=== PATIENT | male | born 1940 | race Caucasian/White ===

== ENCOUNTER 2016-10-31 12:47 | Inpatient (IN) | payer MEDICARE, OTHER, MEDICAID ==
[~2016-10-31] VITALS: Ht 172.7 cm; Wt 90.7 kg
[2016-10-31] VITALS (7 sets, daily range): BP systolic 114–137; BP diastolic 46–71
[~2016-10-31 12:47] MED LIST: VITAMIN C500 M1 JT
[2016-10-31] MEDS ORDERED: DIGOXIN0.125 MG/2 JT (13:09)
[2016-10-31] MEDS ORDERED: MULTIVITAMINS1 EAC8 JT (13:11)
[2016-10-31] MEDS ORDERED: NEXIUM20 M1 JT (13:12)
[2016-10-31] MEDS ORDERED: ROBINUL1 MG JT (13:13)
[2016-10-31] MEDS ORDERED: Ipratropium 0.02% Inh Soln 2.5ml UD HHN ONE (13:15)
[2016-10-31] MEDS ORDERED: Solu-MEDROL 125mg Inj IVP ONE (13:15)
[2016-10-31] MEDS ORDERED: Albuterol ud Inhalation HHN ONE (13:15)
[2016-10-31] MEDS ORDERED: METOPROLOL TART25 MG JT (13:17)
[2016-10-31] MEDS ORDERED: PERIDEX15 ML PO (13:19)
[2016-10-31 13:23] LABS: EOSINOPHILS % (AUTO) 6.5 % (0.0-3.0); LYMPHOCYTES % (AUTO) 8.5 % (20.0-45.0); MEAN CORPUSCULAR HGB CONC 30.9 G/DL (32.0-36.0); MEAN CORPUSCULAR VOLUME 91 FL (80-99); MEAN PLATELET VOLUME 7.4 FL (6.5-10.1); PLATELET COUNT 234 K/UL (150-450); RED BLOOD COUNT 4.13 M/UL (4.70-6.10); RED CELL DISTRIBUTION WIDTH 13.7 % (11.6-14.8); WHITE BLOOD COUNT 8.8 K/UL (4.8-10.8)
[2016-10-31] MEDS ORDERED: SORBITOL 70%30 ML JT (13:23)
[2016-10-31] MEDS ORDERED: ALBUTEROL2.5 MG/3 M INH (13:30)
[2016-10-31 13:34] LABS: TROPONIN I < 0.30 ng/mL (<=0.30)
[2016-10-31] MEDS ORDERED: IPRATROPIU0.2 MG/1 M TRANSTR092 (13:36)
[2016-10-31 13:38] LABS: ALANINE AMINOTRANSFERASE 21 U/L (3-41); ALBUMIN/GLOBULIN RATIO 0.6 (1.0-2.7); ANION GAP 12 (5-15); ASPARTATE AMINO TRANSFERASE 39 U/L (5-40); CALCIUM 9.1 mg/dL (8.6-10.2); CARBON DIOXIDE 31 mEQ/L (20-30); CHLORIDE 95 mEQ/L (98-107); CREATININE 0.6 mg/dL (0.7-1.2); HEMOLYSIS 16; POTASSIUM 4.4 mEQ/L (3.4-4.9); SODIUM 138 mEQ/L (135-145); TOTAL PROTEIN 7.9 g/dL (6.6-8.7)
[2016-10-31 13:48] LABS: CKMB 1.5 ng/mL (< 6.7)
[2016-10-31] MEDS ORDERED: Azithromycin 500 MG in NS 275 ML IV ONE (14:45)
[2016-10-31] MEDS ORDERED: Cefepime HCl 1 GM in NS 55 ML IV ONE (14:45)
[2016-10-31] MEDS ORDERED: Cefepime 1gm vial ONE (14:58)
--- NOTE | 2016-10-31 15:02 | Emergency Room Report ---
History of Present Illness General Chief Complaint: Chest Pain Source: Patient, EMS Present Illness HPI 76-year-old male presents ED for evaluation. Per EMS patient complaining of chest pain today at snf. Patient is trach/ventilator and unable to speak however patient pointing to his chest at the snf. EMS gave patient nitroglycerin. Patient denies any chest pain at this time. Denies fevers or chills. No cough. No other aggravating or relieving factors. No other associated symptom Allergies: Coded Allergies: SULFA (SULFONAMIDE ANTIBIOTICS) (Verified Allergy, Unknown, 10/31/16) Patient History Past Medical History: CHF, CVA/TIA Past Surgical History: none Pertinent Family History: none Social History: Denies: alcohol use, drug use, smoking Immunizations: UTD Reviewed Nursing Documentation: PMH: Agreed, PSxH: Agreed Nursing Documentation-PMH Past Medical History: No History, Except For Hx Cardiac Problems: Yes - CHF, resp. failure Hx Cerebrovascular Accident: Yes Review of Systems All Other Systems: negative except mentioned in HPI Physical Exam Vital Signs Date Time Temp Pulse Resp B/P Pulse Ox O2 Delivery O2 Flow Rate FiO2 10/31/16 12:24 76 20 126/76 99 Ambu-Bag 10/31/16 14:20 100 Sp02 EP Interpretation: reviewed, normal General Appearance: no apparent distress, alert, GCS 15, non-toxic Head: normocephalic Eyes: bilateral eye PERRL, bilateral eye normal inspection ENT: normal ENT inspection Neck: tracheotomy Respiratory: decreased breath sounds, wheezing Cardiovascular #1: regular rate, rhythm, no edema Gastrointestinal: normal inspection Rectal: deferred Genitourinary: no CVA tenderness Musculoskeletal: normal inspection Neurologic: alert, oriented x3, responsive, motor strength/tone normal, sensory intact Psychiatric: normal inspection Skin: normal inspection Lymphatic: normal inspection Medical Decision Making Diagnostic Impression: Primary Impression: CHF (congestive heart failure) Qualified Codes: I50.9 - Heart failure, unspecified Additional Impression: ACS (acute coronary syndrome) ER Course Hospital Course 76-year-old male presents ED complaining of shortness of breath, wheezing. ? Chest pain. Differential diagnoses include: [place]/unstable angina, contusion, muscle strain, PTX, rib fracture Clinical course Patient placed on stretcher. on child monitor. After initial history and physical I ordered labs, EKG, chest x-ray, nebs labs reviewed- no leukocytosis, hemoglobin/hematocrit stable, creatinine ok, troponins negative, BNP elevated Chest x-ray- pulmonary congestion, cardiomegaly. effusions. ? infiltrate EKG - Afib. no acute ischemic changes ASA given. Antibiotics given. Case discussed with Dr. Zazueta and he agreed to accept the patient to his service for further care and support I. I feel this is a highly complex case requiring extensive working including EKG/Rhythm strip, Xray/CT/US, Blood/urine lab work, repeat exams while in ED, and administration of strong opiates/narcotics for pain control, admission to hospital or close patient follow up. Diagnosis - CHF exacerbation, ACS admitted to [facility] in serious condition Labs Test 10/31/16 12:45 White Blood Count 8.8 K/UL (4.8-10.8) Red Blood Count 4.13 M/UL (4.70-6.10) Hemoglobin 11.6 G/DL (14.2-18.0) Hematocrit 37.5 % (42.0-52.0) Mean Corpuscular Volume 91 FL (80-99) Mean Corpuscular Hemoglobin 28.0 PG (27.0-31.0) Mean Corpuscular Hemoglobin Concent 30.9 G/DL (32.0-36.0) Red Cell Distribution Width 13.7 % (11.6-14.8) Platelet Count 234 K/UL (150-450) Mean Platelet Volume 7.4 FL (6.5-10.1) Neutrophils (%) (Auto) 76.0 % (45.0-75.0) Lymphocytes (%) (Auto) 8.5 % (20.0-45.0) Monocytes (%) (Auto) 8.0 % (1.0-10.0) Eosinophils (%) (Auto) 6.5 % (0.0-3.0) Basophils (%) (Auto) 1.0 % (0.0-2.0) Sodium Level 138 mEQ/L (135-145) Potassium Level 4.4 mEQ/L (3.4-4.9) Chloride Level 95 mEQ/L (98-107) Carbon Dioxide Level 31 mEQ/L (20-30) Anion Gap 12 (5-15) Blood Urea Nitrogen 32 mg/dL (7-23) Creatinine 0.6 mg/dL (0.7-1.2) Estimat Glomerular Filtration Rate mL/min (>60) Glucose Level 138 mg/dL (74-106) Lactic Acid Level 1.10 mmol/L (0.66-2.22) Calcium Level 9.1 mg/dL (8.6-10.2) Total Bilirubin 0.3 mg/dL (0.0-1.2) Aspartate Amino Transf (AST/SGOT) 39 U/L (5-40) Alanine Aminotransferase (ALT/SGPT) 21 U/L (3-41) Alkaline Phosphatase 213 U/L (40-129) Total Creatine Kinase 29 U/L (38-174) Creatine Kinase MB 1.5 ng/mL (< 6.7) Creatine Kinase MB Relative Index 5.1 Troponin I < 0.30 ng/mL (<=0.30) Pro-B-Type Natriuretic Peptide 3060 pg/mL (0-450) Total Protein 7.9 g/dL (6.6-8.7) Albumin 3.0 g/dL (3.5-5.2) Globulin 4.9 g/dL Albumin/Globulin Ratio 0.6 (1.0-2.7) EKG Diagnostic Results Rate: normal Rhythm: other - afib ST Segments: no acute changes ASA given to the pt in ED: Yes Rhythm Strip Diag. Results EP Interpretation: yes Rhythm: NSR, no PVC's, no ectopy Chest X-Ray Diagnostic Results EP Interpretation: Yes Findings: no pneumothorax, no acute cardiopulmonary disease, other - cardiomegaly. b/l effusion. ? infiltrate Number of Views: 1 Last Vital Signs Date Time Temp Pulse Resp B/P Pulse Ox O2 Delivery O2 Flow Rate FiO2 10/31/16 14:21 100 10/31/16 14:20 67 14 100 Mechanical Ventilator 10/31/16 12:24 126/76 Status: improved Disposition: ADMITTED INPATIENT Condition: Serious Referrals: NON PHYSICIAN (PCP) MIGNON RENTERIA M.D. Oct 31, 2016 15:02
[2016-10-31] MEDS ORDERED: Azithromycin Inj IV ONE (16:07)
[2016-10-31] MEDS ORDERED: Ipratropium 0.02% Inh Soln 2.5ml UD HHN PRN (21:45)
[2016-10-31] MEDS ORDERED: Albuterol ud Inhalation HHN PRN (21:45)
--- NOTE | 2016-10-31 22:02 | Infectious Diseases Prog Note ---
Assessment/Plan Problems: (1) HCAP (healthcare-associated pneumonia) Assessment & Plan: will start zosyn and vancomycin empirically and send sputum and blood culture (2) Sepsis Assessment & Plan: due to the above , will start vancomycin and zosyn empirically and send blood culture (3) Acute respiratory failure Assessment & Plan: due to pneumonia, intubated on mechanical ventilation, pulmonary is following (4) Acute exacerbation of CHF (congestive heart failure) Assessment & Plan: continue diuresis , cardiology is following (5) ACS (acute coronary syndrome) Assessment & Plan: rule out [place], recommend cardiology consult and serial troponin monitor . Subjective Allergies: Coded Allergies: SULFA (SULFONAMIDE ANTIBIOTICS) (Verified Allergy, Unknown, 10/31/16) Objective Vital Signs Last 24 Hour Vital Signs Date Time Temp Pulse Resp B/P Pulse Ox O2 Delivery O2 Flow Rate FiO2 10/31/16 21:27 70 15 80 10/31/16 19:31 73 17 128/60 99 Mechanical Ventilator 80 10/31/16 18:49 72 16 80 10/31/16 18:00 98.5 76 17 114/55 99 Mechanical Ventilator 80 10/31/16 17:06 73 18 80 10/31/16 17:00 99.0 69 18 114/52 100 Mechanical Ventilator 80 10/31/16 16:30 75 11 80 10/31/16 16:00 71 18 125/50 100 Mechanical Ventilator 100 10/31/16 15:00 99.8 67 16 122/46 100 Mechanical Ventilator 100 10/31/16 15:00 73 11 100 10/31/16 14:21 100 10/31/16 14:20 67 14 100 Mechanical Ventilator 100 10/31/16 14:00 99.6 68 17 137/57 99 Mechanical Ventilator 100 10/31/16 13:00 64 18 Mechanical Ventilator 100 10/31/16 13:00 99.8 64 18 126/67 99 Mechanical Ventilator 100 10/31/16 13:00 100 10/31/16 12:26 71 24 100 10/31/16 12:24 76 20 126/76 99 Ambu-Bag Height (Feet): 5 Height (Inches): 8.00 Weight (Pounds): 200 Laboratory Tests Test 10/31/16 12:45 White Blood Count 8.8 K/UL (4.8-10.8) Red Blood Count 4.13 M/UL (4.70-6.10) L Hemoglobin 11.6 G/DL (14.2-18.0) L Hematocrit 37.5 % (42.0-52.0) L Mean Corpuscular Volume 91 FL (80-99) Mean Corpuscular Hemoglobin 28.0 PG (27.0-31.0) Mean Corpuscular Hemoglobin Concent 30.9 G/DL (32.0-36.0) L Red Cell Distribution Width 13.7 % (11.6-14.8) Platelet Count 234 K/UL (150-450) Mean Platelet Volume 7.4 FL (6.5-10.1) Neutrophils (%) (Auto) 76.0 % (45.0-75.0) H Lymphocytes (%) (Auto) 8.5 % (20.0-45.0) L Monocytes (%) (Auto) 8.0 % (1.0-10.0) Eosinophils (%) (Auto) 6.5 % (0.0-3.0) H Basophils (%) (Auto) 1.0 % (0.0-2.0) Sodium Level 138 mEQ/L (135-145) Potassium Level 4.4 mEQ/L (3.4-4.9) Chloride Level 95 mEQ/L (98-107) L Carbon Dioxide Level 31 mEQ/L (20-30) H Anion Gap 12 (5-15) Blood Urea Nitrogen 32 mg/dL (7-23) H Creatinine 0.6 mg/dL (0.7-1.2) L Estimat Glomerular Filtration Rate mL/min (>60) Glucose Level 138 mg/dL (74-106) H Lactic Acid Level 1.10 mmol/L (0.66-2.22) Calcium Level 9.1 mg/dL (8.6-10.2) Total Bilirubin 0.3 mg/dL (0.0-1.2) Aspartate Amino Transf (AST/SGOT) 39 U/L (5-40) Alanine Aminotransferase (ALT/SGPT) 21 U/L (3-41) Alkaline Phosphatase 213 U/L (40-129) H Total Creatine Kinase 29 U/L (38-174) L Creatine Kinase MB 1.5 ng/mL (< 6.7) Creatine Kinase MB Relative Index 5.1 Troponin I < 0.30 ng/mL (<=0.30) Pro-B-Type Natriuretic Peptide 3060 pg/mL (0-450) H Total Protein 7.9 g/dL (6.6-8.7) Albumin 3.0 g/dL (3.5-5.2) L Globulin 4.9 g/dL Albumin/Globulin Ratio 0.6 (1.0-2.7) L Current Medications Medications (Trade) Dose Ordered Sig/Eber Route PRN Reason Start Time Stop Time Status Last Admin Dose Admin Albuterol Sulfate (Proventil) 2.5 mg Q6H PRN HHN Bronchospasm 10/31/16 21:45 11/05/16 21:44 Ascorbic Acid (Vitamin C) 500 mg TWICE A DAY GT 10/31/16 22:10 11/30/16 22:09 Digoxin (Lanoxin) 0.125 mg DAILY GT 11/01/16 09:00 12/01/16 08:59 Ipratropium [place] (Atrovent) 3 mcg Q6H PRN HHN Bronchospasm 10/31/16 21:45 11/05/16 21:44 Metoprolol Tartrate (Lopressor) 12.5 mg EVERY 12 HOURS GT 10/31/16 22:10 11/30/16 22:09 Multivitamins Therapeutic (Therapeutic Multivitamin) 1 ea DAILY ORAL 11/01/16 09:00 12/01/16 08:59 Sorbitol (Sorbitol) 30 ml TWICE A DAY GT 11/01/16 09:00 12/01/16 08:59 Chloe Beavers M.D. Oct 31, 2016 22:02
[2016-10-31] MEDS: Ascorbic Acid 500mg tab GT SCH (22:35)
[2016-10-31] MEDS: Metoprolol 25mg tab GT SCH (22:35)
[2016-10-31] MEDS ORDERED: Zosyn 3.375gm inj ONE (22:53)
[2016-10-31] MEDS: Piperacillin/Tazobactam 3.375 GM in D5W 110 ML IVPB SCH (23:26)
[2016-10-31] MEDS: Vancomycin 1.25 GM in D5W 275 ML IVPB SCH (23:34)
[2016-11-01] VITALS: BP 131/71
[2016-11-01] MEDS ORDERED: Zosyn 3.375gm inj ONE (01:26)
[2016-11-01 04:00] VITALS: BP 125/68
--- NOTE | 2016-11-01 04:17 | Consultation ---
DATE OF CONSULTATION: 10/31/2016 CARDIOLOGY CONSULTATION REQUESTING PHYSICIAN: Bryant Zazueta M.D. REASON FOR CONSULTATION: Possible chest pain and atrial fibrillation. HISTORY OF PRESENT ILLNESS: This is a 76-year-old male, who [facility]. He apparently was complaining of chest pain while he is on the ventilator with a trach and unable to speak. He apparently was pointing at his chest. He was given nitroglycerin by paramedics. Sequence of events subsequently are not clear. I have been asked to assist with cardiac care. PAST MEDICAL HISTORY: Guillain-[place] syndrome, paroxysmal atrial fibrillation, cerebrovascular disease, hypertension, and history of congestive heart failure. ALLERGIES: None. MEDICATIONS: Reviewed and reconciled. SOCIAL HISTORY: Negative for smoking or alcohol use. REVIEW OF SYSTEMS: Not obtainable from patient. Pertinent data from review of records, is outlined above. PHYSICAL EXAMINATION: VITAL SIGNS: Blood pressure 126/76, pulse 76, respirations 20, and afebrile. HEENT: Conjunctivae are pink. Sclerae are anicteric. Oropharynx is clear. Trach site with thin secretions. LUNGS: With scattered rhonchi and few expiratory wheezes. CARDIAC: Irregularly irregular. Normal S1 and S2. No murmur. ABDOMEN: Soft. G-tube intact. EXTREMITIES: With trace edema and muscle atrophy with contractures. LABORATORY AND DIAGNOSTIC DATA: Chest x-ray with mild pulmonary venous congestion and infiltrates at the bases. EKG with atrial fibrillation and no acute ST-T wave abnormality. White count 8.8 and hemoglobin 11.6. Troponin is negative. Pro-natriuretic peptide is 3060. BUN 32, creatinine 0.6, potassium 4.4, and albumin 3. IMPRESSION: 1. Possible anginal episode. 2. 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 Atrial fibrillation, paroxysmal and rate controlled; episodes of slow ventricular rates noted. 4. Healthcare-acquired pneumonia. 5. Acute on chronic diastolic congestive heart failure. PLAN: 1. Cardiac monitoring. 2. Empiric antibiotics. 3. Monitor volume status and cardiorenal parameters. 4. Beta-blockade; discontinue digitalis. 5. Reassess for diuresis. 6. Trend natriuretic peptide assay. 7. No plan for anticoagulation presently due to increased risk to benefit ratio. Jamarcus Graves M.D. DR: DIEGO JOB#: [id number] CC: MARYBETH
[2016-11-01 05:14] LABS: MEAN CORPUSCULAR HEMOGLOBIN 28.3 PG (27.0-31.0); MEAN CORPUSCULAR HGB CONC 31.1 G/DL (32.0-36.0); MEAN CORPUSCULAR VOLUME 91 FL (80-99); MEAN PLATELET VOLUME 7.6 FL (6.5-10.1); PLATELET COUNT 210 K/UL (150-450); RED BLOOD COUNT 4.16 M/UL (4.70-6.10); RED CELL DISTRIBUTION WIDTH 13.9 % (11.6-14.8); WHITE BLOOD COUNT 5.3 K/UL (4.8-10.8)
[2016-11-01 05:26] LABS: ALANINE AMINOTRANSFERASE 18 U/L (3-41); ALBUMIN/GLOBULIN RATIO 0.5 (1.0-2.7); ANION GAP 15 (5-15); ASPARTATE AMINO TRANSFERASE 30 U/L (5-40); CALCIUM 8.8 mg/dL (8.6-10.2); CARBON DIOXIDE 27 mEQ/L (20-30); CHLORIDE 96 mEQ/L (98-107); CREATININE 0.7 mg/dL (0.7-1.2); HEMOLYSIS 7; POTASSIUM 4.5 mEQ/L (3.4-4.9); SODIUM 138 mEQ/L (135-145); TOTAL PROTEIN 7.5 g/dL (6.6-8.7)
[2016-11-01] MEDS: Piperacillin/Tazobactam 3.375 GM in D5W 110 ML IVPB SCH (05:55)
[2016-11-01 06:17] LABS: TROPONIN I < 0.30 ng/mL (<=0.30)
[2016-11-01 08:00] VITALS: BP 146/91
[2016-11-01] MEDS ORDERED: Digoxin Elixir 0.125mg GT SCH (09:00)
[2016-11-01] MEDS: Multivitamin w/Minerals tab ORAL SCH (09:54)
[2016-11-01] MEDS: Ascorbic Acid 500mg tab GT SCH ×2 (09:54→18:04)
[2016-11-01] MEDS: Metoprolol 25mg tab GT SCH ×3 (09:55→21:40)
[2016-11-01] MEDS ORDERED: Tubing IV Secondary IV ONE (10:15)
[2016-11-01] MEDS ORDERED: NS 275ml ONE (10:15)
[2016-11-01] MEDS: Sorbitol Solution UD 30ml GT SCH ×2 (10:18→18:04)
[2016-11-01] MEDS: Vancomycin 1.25 GM in D5W 275 ML IVPB SCH ×2 (10:20→21:37)
--- NOTE | 2016-11-01 11:55 | Consultation ---
History of Present Illness General Date patient seen: Nov 01, 2016 Chief Complaint: Chest Pain Referring physician: Dr. 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 presented to ED complaining of chest pain at [facility]. Patient pointing to his chest at the [facility]. EMS gave patient nitroglycerin. Pt is awake, can follow commands, but unable to speak because of the trach. He was diagnosed to have congestive heart failure, pleural effusion and afib and admitted to [facility] for further work up. Allergies: Coded Allergies: SULFA (SULFONAMIDE ANTIBIOTICS) (Verified Allergy, Unknown, 10/31/16) Medication History Scheduled Ascorbic Acid* (Vitamin C*), 500 MG JT TWICE A DAY, (Reported) Chlorhexidine Gluconate (Peridex), 15 ML PO EVERY 12 HOURS, (Reported) Digoxin* (Digoxin*), 0.125 MG JT DAILY, (Reported) Esomeprazole Magnesium (Nexium), 20 MG JT DAILY, (Reported) Glycopyrrolate (Robinul), 1 MG JT DAILY, (Reported) Metoprolol Tartrate* (Metoprolol Tartrate*), 12.5 MG JT EVERY 12 HOURS, ( Reported) Multivitamin With Minerals (Multivitamins With Minerals*), 1 TAB JT DAILY, ( Reported) Sorbitol (Sorbitol), 30 ML JT TWICE A DAY, (Reported) Scheduled PRN Albuterol Sulfate* (Albuterol Sulfate Hhn*), 3 ML INH Q6H PRN for Bronchospasm, (Reported) Ipratropium [place] 0.5MG/2.5ML (Ipratropium [place] 0.5MG/2.5ML), 1 VIAL [id number] Q6H PRN for Bronchospasm, (Reported) Patient History Healthcare decision maker Resuscitation status Advanced Directive on File Past Medical/Surgical History Past Medical/Surgical History: (1) Ventilator dependent Review of Systems All Other Systems: negative except mentioned in HPI Physical Exam General Appearance: WD/WN, alert Lines, tubes and drains: trach HEENT: normocephalic, atraumatic Neck: non-tender, supple Respiratory/Chest: chest wall non-tender, lungs clear Breasts: no masses Cardiovascular/Chest: normal peripheral pulses Abdomen: normal bowel sounds Genitourinary/Rectal: normal genital exam Extremities: normal range of motion Last 24 Hour Vital Signs Date Time Temp Pulse Resp B/P Pulse Ox O2 Delivery O2 Flow Rate FiO2 11/01/16 11:10 56 19 80 11/01/16 09:55 62 146/91 11/01/16 09:20 51 16 80 11/01/16 09:00 58 11/01/16 08:00 97.7 65 18 146/91 100 Mechanical Ventilator 80 11/01/16 08:00 55 11/01/16 08:00 80 11/01/16 07:10 89 17 80 11/01/16 05:19 52 19 80 11/01/16 04:00 80 11/01/16 04:00 48 11/01/16 04:00 97.0 54 17 125/68 100 Mechanical Ventilator 80 11/01/16 03:30 50 15 80 11/01/16 01:30 80 13 80 11/01/16 00:00 97.9 87 22 131/71 99 Mechanical Ventilator 80 11/01/16 00:00 58 11/01/16 00:00 80 10/31/16 23:30 86 13 80 10/31/16 22:35 73 116/65 10/31/16 21:27 70 15 80 10/31/16 20:20 80 10/31/16 20:20 76 10/31/16 20:15 97.9 87 22 131/71 99 Mechanical Ventilator 80 10/31/16 19:31 73 17 128/60 99 Mechanical Ventilator 80 10/31/16 18:49 72 16 80 10/31/16 18:00 98.5 76 17 114/55 99 Mechanical Ventilator 80 10/31/16 17:06 73 18 80 10/31/16 17:00 99.0 69 18 114/52 100 Mechanical Ventilator 80 10/31/16 16:30 75 11 80 10/31/16 16:00 71 18 125/50 100 Mechanical Ventilator 100 10/31/16 15:00 99.8 67 16 122/46 100 Mechanical Ventilator 100 10/31/16 15:00 73 11 100 10/31/16 14:21 100 10/31/16 14:20 67 14 100 Mechanical Ventilator 100 10/31/16 14:00 99.6 68 17 137/57 99 Mechanical Ventilator 100 4/9/17 13:00 64 18 Mechanical Ventilator 100 10/31/16 13:00 99.8 64 18 126/67 99 Mechanical Ventilator 100 10/31/16 13:00 100 10/31/16 12:26 71 24 100 10/31/16 12:24 76 20 126/76 99 Ambu-Bag Intake and Output 10/31/16 11/01/16 19:00 07:00 Intake Total 830 ml 662.500 ml Balance 830 ml 662.500 ml Intake Oral 0 ml Free Water 100 ml IV Total 830 ml 412.500 ml Tube Feeding 150 ml # Voids 4 Laboratory Tests Test 10/31/16 12:45 11/01/16 03:40 White Blood Count 8.8 K/UL (4.8-10.8) 5.3 K/UL (4.8-10.8) Red Blood Count 4.13 M/UL (4.70-6.10) L 4.16 M/UL (4.70-6.10) L Hemoglobin 11.6 G/DL (14.2-18.0) L 11.8 G/DL (14.2-18.0) L Hematocrit 37.5 % (42.0-52.0) L 37.9 % (42.0-52.0) L Mean Corpuscular Volume 91 FL (80-99) 91 FL (80-99) Mean Corpuscular Hemoglobin 28.0 PG (27.0-31.0) 28.3 PG (27.0-31.0) Mean Corpuscular Hemoglobin Concent 30.9 G/DL (32.0-36.0) L 31.1 G/DL (32.0-36.0) L Red Cell Distribution Width 13.7 % (11.6-14.8) 13.9 % (11.6-14.8) Platelet Count 234 K/UL (150-450) 210 K/UL (150-450) Mean Platelet Volume 7.4 FL (6.5-10.1) 7.6 FL (6.5-10.1) Neutrophils (%) (Auto) 76.0 % (45.0-75.0) H % (45.0-75.0) Lymphocytes (%) (Auto) 8.5 % (20.0-45.0) L % (20.0-45.0) Monocytes (%) (Auto) 8.0 % (1.0-10.0) % (1.0-10.0) Eosinophils (%) (Auto) 6.5 % (0.0-3.0) H % (0.0-3.0) Basophils (%) (Auto) 1.0 % (0.0-2.0) % (0.0-2.0) Sodium Level 138 mEQ/L (135-145) 138 mEQ/L (135-145) Potassium Level 4.4 mEQ/L (3.4-4.9) 4.5 mEQ/L (3.4-4.9) Chloride Level 95 mEQ/L (98-107) L 96 mEQ/L (98-107) L Carbon Dioxide Level 31 mEQ/L (20-30) H 27 mEQ/L (20-30) Anion Gap 12 (5-15) 15 (5-15) Blood Urea Nitrogen 32 mg/dL (7-23) H 33 mg/dL (7-23) H Creatinine 0.6 mg/dL (0.7-1.2) L 0.7 mg/dL (0.7-1.2) Estimat Glomerular Filtration Rate mL/min (>60) mL/min (>60) Glucose Level 138 mg/dL (74-106) H 206 mg/dL (74-106) H Lactic Acid Level 1.10 mmol/L (0.66-2.22) Calcium Level 9.1 mg/dL (8.6-10.2) 8.8 mg/dL (8.6-10.2) Total Bilirubin 0.3 mg/dL (0.0-1.2) 0.4 mg/dL (0.0-1.2) Aspartate Amino Transf (AST/SGOT) 39 U/L (5-40) 30 U/L (5-40) Alanine Aminotransferase (ALT/SGPT) 21 U/L (3-41) 18 U/L (3-41) Alkaline Phosphatase 213 U/L (40-129) H 201 U/L (40-129) H Total Creatine Kinase 29 U/L (38-174) L Creatine Kinase MB 1.5 ng/mL (< 6.7) Creatine Kinase MB Relative Index 5.1 Troponin I < 0.30 ng/mL (<=0.30) < 0.30 ng/mL (<=0.30) Pro-B-Type Natriuretic Peptide 3060 pg/mL (0-450) H 4073 pg/mL (0-450) H Total Protein 7.9 g/dL (6.6-8.7) 7.5 g/dL (6.6-8.7) Albumin 3.0 g/dL (3.5-5.2) L 2.6 g/dL (3.5-5.2) L Globulin 4.9 g/dL 4.9 g/dL Albumin/Globulin Ratio 0.6 (1.0-2.7) L 0.5 (1.0-2.7) L Height (Feet): 5 Height (Inches): 8.00 Weight (Pounds): 200 Medications Current Medications Medications (Trade) Dose Ordered Sig/Eber Route PRN Reason Start Time Stop Time Status Last Admin Dose Admin Albuterol Sulfate (Proventil) 2.5 mg Q6H PRN HHN Bronchospasm 10/31/16 21:45 11/05/16 21:44 Ascorbic Acid (Vitamin C) 500 mg TWICE A DAY GT 10/31/16 22:10 11/30/16 22:09 11/01/16 09:54 Digoxin (Lanoxin) 0.125 mg DAILY GT 11/01/16 09:00 12/01/16 08:59 Ipratropium [place] (Atrovent) 3 mcg Q6H PRN HHN Bronchospasm 10/31/16 21:45 11/05/16 21:44 Metoprolol Tartrate (Lopressor) 12.5 mg EVERY 12 HOURS GT 10/31/16 22:10 11/30/16 22:09 11/01/16 09:55 Multivitamins Therapeutic (Therapeutic Multivitamin) 1 ea DAILY ORAL 11/01/16 09:00 12/01/16 08:59 11/01/16 09:54 Piperacillin Sod/ Tazobactam Sod 3.375 gm/Dextrose 110 ml @ 27.5 mls/hr EVERY 8 HOURS IVPB 10/31/16 22:00 11/01/16 21:59 11/01/16 05:55 Piperacillin Sod/ Tazobactam Sod/ Sodium Chloride (Zosyn/Sodium Chloride) 110 ml @ 27.5 mls/hr EVERY 8 HOURS IVPB 11/01/16 22:00 11/08/16 21:59 Sorbitol 30 ml 30 ml TWICE A DAY GT 11/01/16 09:00 12/01/16 08:59 11/01/16 10:18 Vancomycin HCl 1.25 gm/Dextrose 275 ml @ 183.708 mls/hr Q12HR IVPB 10/31/16 23:00 11/05/16 22:59 11/01/16 10:20 Assessment/Plan Problem List: (1) Acute on chronic respiratory failure ICD Codes: J96.20 - Acute and chronic respiratory failure, unspecified whether with hypoxia or hypercapnia SNOMED: 64131094, [id number] (2) Ventilator dependent ICD Codes: Z99.11 - Dependence on respirator [ventilator] status SNOMED: 627848378 (3) Acute exacerbation of CHF (congestive heart failure) ICD Codes: I50.9 - Heart failure, unspecified SNOMED: 34089219 (4) ACS (acute coronary syndrome) ICD Codes: I24.9 - Acute ischemic heart disease, unspecified SNOMED: 341662084 Assessment/Plan Us of right chest with possible thoracentesis Echo serial ekg, troponin titrate vent setting sputum for c/s continue gtube feeding. JUAN FRANCISCO SHEN Nov 01, 2016 11:54
[2016-11-01 12:00] VITALS: BP 118/57
--- NOTE | 2016-11-01 12:11 | Diagnostic Imaging Report ---
Indications: Chest pain Technique: Portable AP chest Findings: Comparison: None Cardiac silhouette partially obscured, likely enlarged. Pulmonary vascular redistribution. Bilateral interstitial infiltrates. Hazy opacities over both lung bases suggesting pleural effusions. Underlying consolidation in either or both lung bases not excludable. Aortic arch calcified. Tracheostomy tube in place. Bilateral old, healed rib fractures. Bones are demineralized. IMPRESSION: Findings most compatible with congestive heart failure with probable bilateral pleural effusions Underlying atelectasis or pneumonia in either or both lung bases not excludable Aortosclerosis Bilateral old rib fractures Tracheostomy
[2016-11-01 13:29] LABS: INR 1.3 (0.9-1.1); PROTHROMBIN TIME 12.8 SEC (9.30-11.50)
--- NOTE | 2016-11-01 14:59 | Infectious Diseases Prog Note ---
Assessment/Plan Problems: (1) HCAP (healthcare-associated pneumonia) Assessment & Plan: on zosyn and vancomycin empirically , await sputum and blood culture (2) Sepsis Assessment & Plan: due to the above , continue vancomycin and zosyn empirically , await blood culture (3) Acute respiratory failure Assessment & Plan: due to pneumonia, intubated on mechanical ventilation, pulmonary is following (4) Acute exacerbation of CHF (congestive heart failure) Assessment & Plan: continue diuresis , cardiology is following (5) ACS (acute coronary syndrome) Assessment & Plan: rule out RI, cardiology is consulted , further management as per cardiology Subjective ROS Limited/Unobtainable: Yes Allergies: Coded Allergies: SULFA (SULFONAMIDE ANTIBIOTICS) (Verified Allergy, Severe, 11/01/16) HISTORY OF GBS; 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, 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 Subjective intubated through his trach, awake and alert, nonverbal , not in distress Objective Vital Signs Last 24 Hour Vital Signs Date Time Temp Pulse Resp B/P Pulse Ox O2 Delivery O2 Flow Rate FiO2 11/01/16 14:30 59 21 80 11/01/16 12:31 60 23 80 11/01/16 12:00 97.3 62 22 118/57 100 Mechanical Ventilator 80 11/01/16 11:10 56 19 80 11/01/16 09:55 62 146/91 11/01/16 09:20 51 16 80 11/01/16 09:00 58 11/01/16 08:00 97.7 65 18 146/91 100 Mechanical Ventilator 80 11/01/16 08:00 55 11/01/16 08:00 80 11/01/16 07:10 89 17 80 11/01/16 05:19 52 19 80 11/01/16 04:00 80 11/01/16 04:00 48 11/01/16 04:00 97.0 54 17 125/68 100 Mechanical Ventilator 80 11/01/16 03:30 50 15 80 11/01/16 01:30 80 13 80 11/01/16 00:00 97.9 87 22 131/71 99 Mechanical Ventilator 80 11/01/16 00:00 58 11/01/16 00:00 80 10/31/16 23:30 86 13 80 10/31/16 22:35 73 116/65 10/31/16 21:27 70 15 80 10/31/16 20:20 80 10/31/16 20:20 76 10/31/16 20:15 97.9 87 22 131/71 99 Mechanical Ventilator 80 10/31/16 19:31 73 17 128/60 99 Mechanical Ventilator 80 10/31/16 18:49 72 16 80 10/31/16 18:00 98.5 76 17 114/55 99 Mechanical Ventilator 80 10/31/16 17:06 73 18 80 10/31/16 17:00 99.0 69 18 114/52 100 Mechanical Ventilator 80 10/31/16 16:30 75 11 80 10/31/16 16:00 71 18 125/50 100 Mechanical Ventilator 100 10/31/16 15:00 99.8 67 16 122/46 100 Mechanical Ventilator 100 10/31/16 15:00 73 11 100 Height (Feet): 5 Height (Inches): 8.00 Weight (Pounds): 200 General Appearance: WD/WN, no acute distress HEENT: normocephalic, atraumatic, anicteric, mucous membranes moist, supple, status post trach Respiratory/Chest: chest wall non-tender, no respiratory distress, no accessory muscle use, decreased breath sounds, crackles/rales, expiratory wheezing Cardiovascular: normal peripheral pulses, normal rate, regular rhythm, no gallop/murmur Abdomen: normal bowel sounds, soft, non tender, no organomegaly, non distended , no mass Extremities: no cyanosis, no clubbing Skin: no rash, no lesions Laboratory Tests Test 11/01/16 03:40 11/01/16 13:00 White Blood Count 5.3 K/UL (4.8-10.8) Red Blood Count 4.16 M/UL (4.70-6.10) L Hemoglobin 11.8 G/DL (14.2-18.0) L Hematocrit 37.9 % (42.0-52.0) L Mean Corpuscular Volume 91 FL (80-99) Mean Corpuscular Hemoglobin 28.3 PG (27.0-31.0) Mean Corpuscular Hemoglobin Concent 31.1 G/DL (32.0-36.0) L Red Cell Distribution Width 13.9 % (11.6-14.8) Platelet Count 210 K/UL (150-450) Mean Platelet Volume 7.6 FL (6.5-10.1) Neutrophils (%) (Auto) % (45.0-75.0) Lymphocytes (%) (Auto) % (20.0-45.0) Monocytes (%) (Auto) % (1.0-10.0) Eosinophils (%) (Auto) % (0.0-3.0) Basophils (%) (Auto) % (0.0-2.0) Sodium Level 138 mEQ/L (135-145) Potassium Level 4.5 mEQ/L (3.4-4.9) Chloride Level 96 mEQ/L (98-107) L Carbon Dioxide Level 27 mEQ/L (20-30) Anion Gap 15 (5-15) Blood Urea Nitrogen 33 mg/dL (7-23) H Creatinine 0.7 mg/dL (0.7-1.2) Estimat Glomerular Filtration Rate mL/min (>60) Glucose Level 206 mg/dL (74-106) H Calcium Level 8.8 mg/dL (8.6-10.2) Total Bilirubin 0.4 mg/dL (0.0-1.2) Aspartate Amino Transf (AST/SGOT) 30 U/L (5-40) Alanine Aminotransferase (ALT/SGPT) 18 U/L (3-41) Alkaline Phosphatase 201 U/L (40-129) H Troponin I < 0.30 ng/mL (<=0.30) Pro-B-Type Natriuretic Peptide 4073 pg/mL (0-450) H Total Protein 7.5 g/dL (6.6-8.7) Albumin 2.6 g/dL (3.5-5.2) L Globulin 4.9 g/dL Albumin/Globulin Ratio 0.5 (1.0-2.7) L Prothrombin Time 12.8 SEC (9.30-11.50) H Prothromb Time International Ratio 1.3 (0.9-1.1) H Activated Partial Thromboplast Time 33 SEC (23-33) Current Medications Medications (Trade) Dose Ordered Sig/Eber Route PRN Reason Start Time Stop Time Status Last Admin Dose Admin Albuterol Sulfate (Proventil) 2.5 mg Q6H PRN HHN Bronchospasm 10/31/16 21:45 11/05/16 21:44 Ascorbic Acid (Vitamin C) 500 mg TWICE A DAY GT 10/31/16 22:10 11/30/16 22:09 11/01/16 09:54 Ipratropium [place] (Atrovent) 3 mcg Q6H PRN HHN Bronchospasm 10/31/16 21:45 11/05/16 21:44 Metoprolol Tartrate (Lopressor) 12.5 mg EVERY 12 HOURS GT 10/31/16 22:10 11/30/16 22:09 11/01/16 09:55 Multivitamins Therapeutic (Therapeutic Multivitamin) 1 ea DAILY ORAL 11/01/16 09:00 12/01/16 08:59 11/01/16 09:54 Piperacillin Sod/ Tazobactam Sod 3.375 gm/Dextrose 110 ml @ 27.5 mls/hr EVERY 8 HOURS IVPB 10/31/16 22:00 11/01/16 21:59 11/01/16 05:55 Piperacillin Sod/ Tazobactam Sod/ Sodium Chloride (Zosyn/Sodium Chloride) 110 ml @ 27.5 mls/hr EVERY 8 HOURS IVPB 11/01/16 22:00 11/08/16 21:59 Sorbitol 30 ml 30 ml TWICE A DAY GT 11/01/16 09:00 12/01/16 08:59 11/01/16 10:18 Vancomycin HCl 1.25 gm/Dextrose 275 ml @ 183.708 mls/hr Q12HR IVPB 10/31/16 23:00 11/05/16 22:59 11/01/16 10:20 Chloe Beavers M.D. Nov 01, 2016 14:59
[2016-11-01 16:00] VITALS: BP 126/65
[2016-11-01] MEDS: Piperacillin/Tazobactam 3.375 GM in NS 110 ML IVPB SCH ×2 (16:06→23:00)
--- NOTE | 2016-11-01 20:17 | Consultation ---
DATE OF CONSULTATION: 11/01/2016 INFECTIOUS DISEASE CONSULTATION CONSULTING PHYSICIAN: Chloe Beavers M.D. REQUESTING PHYSICIAN: Bryant Zazueta M.D. REASON FOR CONSULTATION: Sepsis and pneumonia with acute respiratory failure. Recommendation for antibiotics therapy. HISTORY OF PRESENT ILLNESS: The patient is a 76-year-old male with history of CHF, CVA, and chronic respiratory failure on trach, who presented to [facility] for shortness of breath and hypoxemia with chest pain. The patient had no fever or chills. No cough. Found to have low oxygenation so he was intubated at the [facility] and transferred to [place] emergency room for further evaluation and management. Chest x-ray showed interstitial infiltrates suspicious of pneumonia versus pulmonary edema. The patient received antibiotics empirically and I was consulted by the primary provider for antibiotics treatment and further management. As of note, the patient is intubated and cannot provide any good history. History was mainly obtained from the medical record. PAST MEDICAL HISTORY: Significant for CHF, CVA and chronic respiratory failure on trach. PAST SURGICAL HISTORY: Negative. ALLERGIES: He is allergic to sulfa drugs. MEDICATIONS: He received cefepime and azithromycin in the emergency room. For the rest of his medications please refer to the MAR. FAMILY HISTORY: Unable to obtain. SOCIAL HISTORY: The patient is a care home resident. No recent drugs, tobacco, or alcohol. REVIEW OF SYSTEMS: Unable to obtain at this point, the patient cannot provide any history. LABORATORY DATA: Showed white count of 8.8, hemoglobin of 11.6, and platelet count of 234,000. BUN of 33 and creatinine of 0.7. ALT of 18 and AST of 30. IMAGING STUDIES: Chest x-ray showed congestive heart failure probable bilateral pleural effusion, underlying atelectasis of pneumonia on either or both lung cannot be excluded and bilateral old rib fractures. PHYSICAL EXAMINATION: VITAL SIGNS: Temperature 97.9 degrees, pulse 87, respirations 22, blood pressure 131/71, and pulse oximetry 99% on FiO2 of 80% through mechanical ventilation. GENERAL: This is an elderly male with trach on ventilator, awake, alert, nonverbal, and not in acute distress. HEENT: Normocephalic and atraumatic. Pupils are reactive to light. Dry oral mucosa. No exudate. NECK: Supple. No lymphadenopathy. Trach site looks clean with no drainage or bleeding. CARDIOVASCULAR: Regular rate and rhythm. No murmur. LUNGS: He had diminished breathing sound on both lung sinha with wheezing mainly at the bases. No rhonchi. ABDOMEN: Soft, nontender, and nondistended. Positive bowel sounds. No hepatosplenomegaly. Tube feeding in place with intact site. EXTREMITIES: No edema or cyanosis. SKIN: No rash or hives. ASSESSMENT AND PLAN: 1. Healthcare-acquired pneumonia with bilateral interstitial infiltrate. We will start Zosyn and vancomycin empiric treatment. Send sputum and blood culture. 2. Sepsis due to the above. We will start vancomycin and Zosyn empirically and send blood culture. 3. Acute respiratory failure due to pneumonia intubated and mechanical ventilation. Pulmonary is following. 4. Acute exacerbation of congestive heart failure. Continue diuresis. Cardiology is following. 5. Chest pain possible acute coronary syndrome rule out myocardial infarction. Recommend Cardiology consult and serial troponin monitor. Chloe Beavers M.D. DR: ROMEL JOB#: [id number] CC:
[2016-11-01 20:51] VITALS: BP 124/58
--- NOTE | 2016-11-01 21:28 | History and Physical Report ---
DATE OF ADMISSION: 10/31/2016 HISTORY OF PRESENT ILLNESS: The patient basically has a trach and PEG. He is relatively poor historian. He is admitted from a [facility] subacute center for SOB and chest pain, on ventilator, most likely due to CHF and possible underlying pneumonia on the x-ray. I cannot get any history from the patient at this point. PAST MEDICAL HISTORY: Significant for vent dependence, CHF, hypertension, arrhythmia, GERD, and constipation. ALLERGIES: Sulfa. PAST SURGICAL HISTORY: Significant for trach and PEG as well as exploratory laparotomy in the abdomen. SOCIAL HISTORY: The patient has history of smoking. No history of drug or alcohol abuse. MEDICATIONS: Vitamin C, digoxin, Nexium, breathing treatment, metoprolol, multivitamin, and sorbitol p.r.n. FAMILY HISTORY: Noncontributory. REVIEW OF SYSTEMS: Difficult to obtain. The patient is a poor historian. He has a trach at this point. PHYSICAL EXAMINATION: VITAL SIGNS: Temperature is 97.3, pulse is 64, and blood pressure 118/57. HEENT: PERRLA. NECK: Supple. No lymphadenopathy. CHEST: Clear to auscultation. GASTROINTESTINAL: Positive bowel sounds. Distended, however, nontender. The patient has G-tube and trach. The sites look noninfected. EXTREMITIES: 1+ edema. Contractures. Lower extremities are weaker, which is chronic for him. NEUROLOGIC: Oriented x1. LABORATORY DATA: WBC of 8.8, hemoglobin 11.6, and platelets 234,000. Sodium 138, potassium 4.5, BUN of 33, creatinine 0.7, and glucose of 206. ASSESSMENT AND PLAN: 1. Shortness of breath, most likely due to congestive heart failure as well as underlying possible pneumonia on the x-ray. 2. Ventilator dependent. 3. I have asked Dr. Claire, Dr. Beavers, Dr. Zuluaga, and Dr. Raman to see the patient for the above mentioned diagnoses, treatment and management. Bryant Zazueta M.D. DR: ADRIAN JOB#: [id number] CC: MARYBETH
[2016-11-02] VITALS: BP 121/66
--- NOTE | 2016-11-02 01:58 | Progress Note ---
DATE: 11/01/2016 CARDIOLOGY PROGRESS NOTE SUBJECTIVE: The patient remains on ventilator support via trach. He continues to have some episodes of shortness of breath. No apparent complaints of chest pain. OBJECTIVE: VITAL SIGNS: Blood pressure 127/58, pulse 54, respirations 16, and afebrile. NECK: Trach site with thin secretions. LUNGS: With coarse rhonchi. CARDIAC: Irregularly irregular rhythm. Normal S1, S2. No murmur. ABDOMEN: Soft, G-tube intact. EXTREMITIES: With trace edema. LABORATORY AND DIAGNOSTIC DATA: Venous duplex negative for DVT. White count 5.3, hemoglobin 11.8. Potassium 4.5, BUN 33, creatinine 0.7, pro-natriuretic peptide 4073. Troponin is negative. IMPRESSION: 1. Ventilator-dependent respiratory failure. 2. Possible anginal episode with no signs of ischemia at this time. 3. Acute on chronic diastolic congestive heart failure. 4. Healthcare-acquired pneumonia. PLAN: 1. Antibiotics. 2. Ventilator support. 3. Diuresis. 4. Optimize cardiovascular regimen. Jamarcus Graves M.D. DR: JOE JOB#: [id number] CC: Aldair Marie M.D.
[2016-11-02 04:00] VITALS: BP 115/53
[2016-11-02] MEDS: Piperacillin/Tazobactam 3.375 GM in NS 110 ML IVPB SCH ×3 (05:30→22:30)
[2016-11-02 08:00] VITALS: BP 117/46
[2016-11-02] MEDS: Multivitamin w/Minerals tab ORAL SCH (08:04)
[2016-11-02] MEDS: Sorbitol Solution UD 30ml GT SCH ×2 (08:04→18:00)
[2016-11-02] MEDS: Ascorbic Acid 500mg tab GT SCH ×2 (08:04→18:00)
[2016-11-02] MEDS: Metoprolol 25mg tab GT SCH ×2 (08:05→21:00)
[2016-11-02 09:38] LABS: APPEARANCE,URINE TURBID; KETONES,URINE NEGATIVE (NEGATIVE); LEUKOCYTE ESTERASE ,URINE 3+ (NEGATIVE); NITRITE,URINE NEGATIVE (NEGATIVE); PH,URINE 5 (4.5-8.0); PROTEIN,URINE 2+ (NEGATIVE); UROBILINOGEN,URINE NORMAL MG/DL (0.0-1.0)
[2016-11-02 09:45] LABS: BASOPHILS % (AUTO) 0.5 % (0.0-2.0); EOSINOPHILS % (AUTO) 1.2 % (0.0-3.0); LYMPHOCYTES % (AUTO) 8.4 % (20.0-45.0); MEAN CORPUSCULAR HEMOGLOBIN 28.8 PG (27.0-31.0); MEAN CORPUSCULAR HGB CONC 31.3 G/DL (32.0-36.0); MEAN CORPUSCULAR VOLUME 92 FL (80-99); MEAN PLATELET VOLUME 7.5 FL (6.5-10.1); NEUTROPHILS % (AUTO) 82.9 % (45.0-75.0); PLATELET COUNT 221 K/UL (150-450); RED BLOOD COUNT 4.09 M/UL (4.70-6.10); RED CELL DISTRIBUTION WIDTH 14.1 % (11.6-14.8); WHITE BLOOD COUNT 10.5 K/UL (4.8-10.8)
[2016-11-02 09:50] LABS: ALANINE AMINOTRANSFERASE 21 U/L (3-41); ALBUMIN/GLOBULIN RATIO 0.6 (1.0-2.7); ANION GAP 11 (5-15); ASPARTATE AMINO TRANSFERASE 31 U/L (5-40); CALCIUM 8.7 mg/dL (8.6-10.2); CARBON DIOXIDE 33 mEQ/L (20-30); CHLORIDE 97 mEQ/L (98-107); CREATININE 0.9 mg/dL (0.7-1.2); HEMOLYSIS 4; POTASSIUM 3.8 mEQ/L (3.4-4.9); SODIUM 141 mEQ/L (135-145); TOTAL PROTEIN 7.4 g/dL (6.6-8.7)
[2016-11-02 10:04] LABS: BACTERIA,URINE MODERATE /HPF; RBC,URINE 30-40 /HPF (0 - 0); SQUAMOUS EPITHELIAL CELL,UR FEW /LPF (NONE/OCC); WBC,URINE TNTC /HPF (0 - 0)
--- NOTE | 2016-11-02 10:32 | Diagnostic Imaging Report ---
Indication: DYSPNEA Technique: One view of the chest Comparison: 10/31/2016 Findings: Patient's chin obscures the upper mediastinum. Is a tracheostomy again demonstrated. Bilateral interstitial edema persists. Bilateral pleural effusions, right greater than left, persists. The heart remains borderline enlarged. Findings are unchanged Impression: Unchanged, over one day, findings as above.
[2016-11-02] MEDS: Vancomycin 1.25 GM in D5W 275 ML IVPB SCH (11:16)
--- NOTE | 2016-11-02 11:34 | Pulmonology Progress Note ---
Assessment/Plan Problems: (1) Acute on chronic respiratory failure (2) Ventilator dependent (3) Acute exacerbation of CHF (congestive heart failure) (4) ACS (acute coronary syndrome) Respiratory: monitor respiratory rate, adjust FIO2, other - awaiting thoracentesis Cardiac: continue to monitor HR/BP, other - heart rate is as low as 40, metoprolol is on hold Renal: check electrolytes Infectious Disease: continue antibiotics Gastrointestinal: continue feedings/current rate, other - moved his bowel Endocrine: check HgA1C, continue sliding scale insulin Hematologic: transfuse if hgb<8.5 Neurologic: keep patient comfortable Affect: PRN ativan Notes Reviewed: principal embedded software engineer, renal Discussed with: nurses, consultants, case consultant Subjective Interval Events: awake, comfortable Allergies: Coded Allergies: SULFA (SULFONAMIDE ANTIBIOTICS) (Verified Allergy, Severe, 11/01/16) HISTORY OF GBS; 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, 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 Objective Last 24 Hour Vital Signs Date Time Temp Pulse Resp B/P Pulse Ox O2 Delivery O2 Flow Rate FiO2 11/02/16 09:27 60 15 80 11/02/16 08:05 51 115/53 11/02/16 08:00 80 11/02/16 08:00 97.2 53 14 117/46 100 Mechanical Ventilator 80 11/02/16 07:52 54 11/02/16 07:23 56 18 80 11/02/16 05:28 69 11 80 11/02/16 04:07 59 11/02/16 04:00 80 11/02/16 04:00 97.9 51 14 115/53 100 Mechanical Ventilator 80 11/02/16 03:32 72 11 80 11/02/16 01:18 79 13 80 11/02/16 00:00 98.0 56 14 121/66 100 Mechanical Ventilator 80 11/02/16 00:00 80 11/01/16 23:53 55 11/01/16 22:43 75 19 80 11/01/16 21:40 54 127/58 11/01/16 20:51 69 16 80 11/01/16 20:51 98.0 60 15 124/58 100 80 11/01/16 20:01 59 11/01/16 20:00 80 11/01/16 19:10 72 17 80 11/01/16 17:05 76 15 80 11/01/16 16:00 80 11/01/16 16:00 62 11/01/16 16:00 97.3 73 20 126/65 100 Mechanical Ventilator 80 11/01/16 14:30 59 21 80 11/01/16 12:31 60 23 80 11/01/16 12:00 97.3 62 22 118/57 100 Mechanical Ventilator 80 11/01/16 12:00 80 11/01/16 12:00 57 Intake and Output 11/01/16 11/02/16 19:00 07:00 Intake Total 1164.916 ml 972.500 ml Output Total 1010 ml Balance 1164.916 ml -37.500 ml Free Water 300 ml 200 ml IV Total 504.916 ml 412.500 ml Tube Feeding 360 ml 360 ml Output Urine Total 1010 ml # Voids 3 General Appearance: WD/WN HEENT: normocephalic, atraumatic, status post trach Respiratory/Chest: chest wall non-tender, lungs clear Cardiovascular: normal peripheral pulses, normal rate Abdomen: normal bowel sounds, soft, non tender Genitourinary: normal external genitalia Extremities: no clubbing Skin: no rash, no ulcers Neurologic/Psychiatric: air liaison and special staff II-XII grossly normal Microbiology Date/Time Source Procedure Growth Status 10/31/16 13:00 Blood Blood Culture - Preliminary NO GROWTH AFTER 24 HOURS Resulted 10/31/16 12:45 Blood Blood Culture - Preliminary NO GROWTH AFTER 24 HOURS Resulted 10/31/16 22:40 Sputum Expectorated Gram Stain - Final Resulted 10/31/16 22:40 Sputum Expectorated Sputum Culture Pending Resulted Laboratory Tests 11/01/16 13:00: Prothrombin Time 12.8H, Prothromb Time International Ratio 1.3H, Activated Partial Thromboplast Time 33 11/02/16 05:30: Urine Color Pale yellow, Urine Appearance Turbid, Urine pH 5, Urine Specific [place] 1.010, Urine Protein 2+H, Urine Glucose (UA) Negative, Urine Ketones Negative, Urine Occult Blood 4+H, Urine Nitrite Negative, Urine Bilirubin Negative, Urine Urobilinogen Normal, Urine Leukocyte Esterase 3+H, Urine RBC 30- 40H, Urine WBC TntcH, Urine Squamous Epithelial Cells Few, Urine Bacteria ModerateH 11/02/16 08:40: White Blood Count 10.5#, Red Blood Count 4.09L, Hemoglobin 11.8L, Hematocrit 37.5L, Mean Corpuscular Volume 92, Mean Corpuscular Hemoglobin 28.8, Mean Corpuscular Hemoglobin Concent 31.3L, Red Cell Distribution Width 14.1, Platelet Count 221, Mean Platelet Volume 7.5, Neutrophils (%) (Auto) 82.9H, Lymphocytes (%) (Auto) 8.4L, Monocytes (%) (Auto) 7.0, Eosinophils (%) (Auto) 1.2, Basophils (%) (Auto) 0.5, Sodium Level 141, Potassium Level 3.8, Chloride Level 97L, Carbon Dioxide Level 33H, Anion Gap 11, Blood Urea Nitrogen 36H, Creatinine 0.9, Estimat Glomerular Filtration Rate , Glucose Level 114H, Calcium Level 8.7, Total Bilirubin 0.4, Aspartate Amino Transf (AST/SGOT) 31, Alanine Aminotransferase (ALT/SGPT) 21, Alkaline Phosphatase 175H, Total Protein 7.4, Albumin 3.0L, Globulin 4.4, Albumin/Globulin Ratio 0.6L, Vancomycin Level Trough 31.3H Current Medications Medications (Trade) Dose Ordered Sig/Eber Route PRN Reason Start Time Stop Time Status Last Admin Dose Admin Albuterol Sulfate (Proventil) 2.5 mg Q6H PRN HHN Bronchospasm 10/31/16 21:45 11/05/16 21:44 Ascorbic Acid (Vitamin C) 500 mg TWICE A DAY GT 10/31/16 22:10 11/30/16 22:09 11/02/16 08:04 Ipratropium [place] (Atrovent) 3 mcg Q6H PRN HHN Bronchospasm 10/31/16 21:45 11/05/16 21:44 Metoprolol Tartrate (Lopressor) 12.5 mg EVERY 12 HOURS GT 10/31/16 22:10 11/30/16 22:09 11/01/16 09:55 Multivitamins Therapeutic (Therapeutic Multivitamin) 1 ea DAILY ORAL 11/01/16 09:00 12/01/16 08:59 11/02/16 08:04 Piperacillin Sod/ Tazobactam Sod/ Sodium Chloride (Zosyn/Sodium Chloride) 110 ml @ 27.5 mls/hr EVERY 8 HOURS IVPB 11/01/16 15:00 11/08/16 14:59 11/02/16 05:30 Sorbitol 30 ml 30 ml TWICE A DAY GT 11/01/16 09:00 12/01/16 08:59 11/02/16 08:04 Vancomycin HCl (Vanco rx to dose) 1 ea DAILY PRN MISC PER RX PROTOCOL 11/02/16 10:15 12/02/16 10:14 JUAN FRANCISCO SHEN Nov 02, 2016 11:34
--- NOTE | 2016-11-02 11:54 | General Progress Note ---
Assessment/Plan Problem List: (1) Acute respiratory failure ICD Codes: J96.00 - Acute respiratory failure, unspecified whether with hypoxia or hypercapnia SNOMED: 30149041 (2) CHF (congestive heart failure) ICD Codes: I50.9 - Heart failure, unspecified SNOMED: 64000892 Qualifiers: Qualified Codes: I50.9 - Heart failure, unspecified (3) Renal failure ICD Codes: N19 - Unspecified kidney failure SNOMED: 54589757 (4) Sepsis ICD Codes: A41.9 - Sepsis, unspecified organism SNOMED: 60813243 (5) Acute exacerbation of CHF (congestive heart failure) ICD Codes: I50.9 - Heart failure, unspecified SNOMED: 11839228 (6) Ventilator dependent ICD Codes: Z99.11 - Dependence on respirator [ventilator] status SNOMED: 291127782 (7) Acute on chronic respiratory failure ICD Codes: J96.20 - Acute and chronic respiratory failure, unspecified whether with hypoxia or hypercapnia SNOMED: 50586052, 79981711 Status: progressing Assessment/Plan afebrile vitals stable chf exacerbation pna reivewed chart and labs Subjective Constitutional: Reports: no symptoms Allergies: Coded Allergies: SULFA (SULFONAMIDE ANTIBIOTICS) (Verified Allergy, Severe, 11/01/16) HISTORY OF GBS; 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, 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 Objective Last 24 Hour Vital Signs Date Time Temp Pulse Resp B/P Pulse Ox O2 Delivery O2 Flow Rate FiO2 11/02/16 11:29 64 14 80 11/02/16 09:27 60 15 80 11/02/16 08:05 51 115/53 11/02/16 08:00 80 11/02/16 08:00 97.2 53 14 117/46 100 Mechanical Ventilator 80 11/02/16 07:52 54 11/02/16 07:23 56 18 80 11/02/16 05:28 69 11 80 11/02/16 04:07 59 11/02/16 04:00 80 11/02/16 04:00 97.9 51 14 115/53 100 Mechanical Ventilator 80 11/02/16 03:32 72 11 80 11/02/16 01:18 79 13 80 11/02/16 00:00 98.0 56 14 121/66 100 Mechanical Ventilator 80 11/02/16 00:00 80 11/01/16 23:53 55 11/01/16 22:43 75 19 80 11/01/16 21:40 54 127/58 11/01/16 20:51 69 16 80 11/01/16 20:51 98.0 60 15 124/58 100 80 11/01/16 20:01 59 11/01/16 20:00 80 11/01/16 19:10 72 17 80 11/01/16 17:05 76 15 80 11/01/16 16:00 80 11/01/16 16:00 62 11/01/16 16:00 97.3 73 20 126/65 100 Mechanical Ventilator 80 11/01/16 14:30 59 21 80 11/01/16 12:31 60 23 80 11/01/16 12:00 97.3 62 22 118/57 100 Mechanical Ventilator 80 11/01/16 12:00 80 11/01/16 12:00 57 Intake and Output 11/01/16 11/02/16 19:00 07:00 Intake Total 1164.916 ml 972.500 ml Output Total 1010 ml Balance 1164.916 ml -37.500 ml Free Water 300 ml 200 ml IV Total 504.916 ml 412.500 ml Tube Feeding 360 ml 360 ml Output Urine Total 1010 ml # Voids 3 Laboratory Tests 11/01/16 13:00: Prothrombin Time 12.8H, Prothromb Time International Ratio 1.3H, Activated Partial Thromboplast Time 33 11/02/16 05:30: Urine Color Pale yellow, Urine Appearance Turbid, Urine pH 5, Urine Specific [place] 1.010, Urine Protein 2+H, Urine Glucose (UA) Negative, Urine Ketones Negative, Urine Occult Blood 4+H, Urine Nitrite Negative, Urine Bilirubin Negative, Urine Urobilinogen Normal, Urine Leukocyte Esterase 3+H, Urine RBC 30- 40H, Urine WBC TntcH, Urine Squamous Epithelial Cells Few, Urine Bacteria ModerateH 11/02/16 08:40: White Blood Count 10.5#, Red Blood Count 4.09L, Hemoglobin 11.8L, Hematocrit 37.5L, Mean Corpuscular Volume 92, Mean Corpuscular Hemoglobin 28.8, Mean Corpuscular Hemoglobin Concent 31.3L, Red Cell Distribution Width 14.1, Platelet Count 221, Mean Platelet Volume 7.5, Neutrophils (%) (Auto) 82.9H, Lymphocytes (%) (Auto) 8.4L, Monocytes (%) (Auto) 7.0, Eosinophils (%) (Auto) 1.2, Basophils (%) (Auto) 0.5, Sodium Level 141, Potassium Level 3.8, Chloride Level 97L, Carbon Dioxide Level 33H, Anion Gap 11, Blood Urea Nitrogen 36H, Creatinine 0.9, Estimat Glomerular Filtration Rate , Glucose Level 114H, Calcium Level 8.7, Total Bilirubin 0.4, Aspartate Amino Transf (AST/SGOT) 31, Alanine Aminotransferase (ALT/SGPT) 21, Alkaline Phosphatase 175H, Total Protein 7.4, Albumin 3.0L, Globulin 4.4, Albumin/Globulin Ratio 0.6L, Vancomycin Level Trough 31.3H Height (Feet): 5 Height (Inches): 8.00 Weight (Pounds): 200 EENT: PERRL/EOMI Neck: supple Cardiovascular: normal rate Bryant Zazueta MD Nov 02, 2016 11:54
[2016-11-02 12:00] VITALS: BP 118/71
--- NOTE | 2016-11-02 15:21 | Diagnostic Imaging Report ---
APPROVED REPORT CPT Code: 97176 Present Symptoms Shortness of breath BILATERAL: Imaging reveals a patent deep venous system bilaterally. There is no evidence of thrombus within the femoral, popliteal or tibial segments. The greater saphenous veins are also within normal limits. Doppler indicates normal spontaneous flow within these segments.
[2016-11-02 16:00] VITALS: BP 103/48
[2016-11-02 20:00] VITALS: BP 103/57
--- NOTE | 2016-11-02 21:26 | Infectious Diseases Prog Note ---
Assessment/Plan Problems: (1) HCAP (healthcare-associated pneumonia) Assessment & Plan: on zosyn and vancomycin empirically , await sputum and blood culture (2) Sepsis Assessment & Plan: due to the above , continue vancomycin and zosyn empirically , await blood culture (3) Acute respiratory failure Assessment & Plan: due to pneumonia, intubated on mechanical ventilation, pulmonary is following (4) Acute exacerbation of CHF (congestive heart failure) Assessment & Plan: continue diuresis , cardiology is following (5) ACS (acute coronary syndrome) Assessment & Plan: rule out [place], cardiology is consulted , further management as per cardiology Subjective ROS Limited/Unobtainable: Yes Allergies: Coded Allergies: SULFA (SULFONAMIDE ANTIBIOTICS) (Verified Allergy, Severe, 11/01/16) HISTORY OF GBS; 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, 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 Subjective intubated through his trach, awake and alert, nonverbal , not in distress Objective Vital Signs Last 24 Hour Vital Signs Date Time Temp Pulse Resp B/P Pulse Ox O2 Delivery O2 Flow Rate FiO2 11/02/16 20:00 80 11/02/16 20:00 98.0 61 19 103/57 97 Mechanical Ventilator 11/02/16 19:22 65 18 80 11/02/16 16:00 97.7 59 17 103/48 99 Mechanical Ventilator 80 11/02/16 16:00 80 11/02/16 15:35 63 11/02/16 15:15 64 13 80 11/02/16 12:53 60 15 80 11/02/16 12:00 80 11/02/16 12:00 97.5 60 14 118/71 100 Mechanical Ventilator 80 11/02/16 11:45 61 11/02/16 11:29 64 14 80 11/02/16 09:27 60 15 80 11/02/16 08:05 51 115/53 11/02/16 08:00 80 11/02/16 08:00 97.2 53 14 117/46 100 Mechanical Ventilator 80 11/02/16 07:52 54 11/02/16 07:23 56 18 80 11/02/16 05:28 69 11 80 11/02/16 04:07 59 11/02/16 04:00 80 11/02/16 04:00 97.9 51 14 115/53 100 Mechanical Ventilator 80 11/02/16 03:32 72 11 80 4/11/17 01:18 79 13 80 11/02/16 00:00 98.0 56 14 121/66 100 Mechanical Ventilator 80 11/02/16 00:00 80 11/01/16 23:53 55 11/01/16 22:43 75 19 80 11/01/16 21:40 54 127/58 Height (Feet): 5 Height (Inches): 8.00 Weight (Pounds): 200 General Appearance: WD/WN, no acute distress HEENT: normocephalic, atraumatic, anicteric, mucous membranes moist, PERRL Respiratory/Chest: chest wall non-tender, no respiratory distress, no accessory muscle use, decreased breath sounds Cardiovascular: normal peripheral pulses, normal rate, regular rhythm, no gallop/murmur Abdomen: normal bowel sounds, soft, non tender, no organomegaly, non distended , no mass, no scars Extremities: no cyanosis, no clubbing Skin: no rash, no lesions Microbiology Date/Time Source Procedure Growth Status 10/31/16 13:00 Blood Blood Culture - Preliminary NO GROWTH AFTER 24 HOURS Resulted 10/31/16 12:45 Blood Blood Culture - Preliminary NO GROWTH AFTER 24 HOURS Resulted 10/31/16 22:40 Sputum Expectorated Gram Stain - Final Resulted 10/31/16 22:40 Sputum Expectorated Sputum Culture Pending Resulted Laboratory Tests Test 11/02/16 05:30 11/02/16 08:40 Urine Color Pale yellow Urine Appearance Turbid Urine pH 5 (4.5-8.0) Urine Specific [place] 1.010 (1.005-1.035) Urine Protein 2+ (NEGATIVE) H Urine Glucose (UA) Negative (NEGATIVE) Urine Ketones Negative (NEGATIVE) Urine Occult Blood 4+ (NEGATIVE) H Urine Nitrite Negative (NEGATIVE) Urine Bilirubin Negative (NEGATIVE) Urine Urobilinogen Normal MG/DL (0.0-1.0) Urine Leukocyte Esterase 3+ (NEGATIVE) H Urine RBC 30-40 /HPF (0 - 0) H Urine WBC Tntc /HPF (0 - 0) H Urine Squamous Epithelial Cells Few /LPF (NONE/OCC) Urine Bacteria Moderate /HPF (NONE) H White Blood Count 10.5 K/UL (4.8-10.8) # Red Blood Count 4.09 M/UL (4.70-6.10) L Hemoglobin 11.8 G/DL (14.2-18.0) L Hematocrit 37.5 % (42.0-52.0) L Mean Corpuscular Volume 92 FL (80-99) Mean Corpuscular Hemoglobin 28.8 PG (27.0-31.0) Mean Corpuscular Hemoglobin Concent 31.3 G/DL (32.0-36.0) L Red Cell Distribution Width 14.1 % (11.6-14.8) Platelet Count 221 K/UL (150-450) Mean Platelet Volume 7.5 FL (6.5-10.1) Neutrophils (%) (Auto) 82.9 % (45.0-75.0) H Lymphocytes (%) (Auto) 8.4 % (20.0-45.0) L Monocytes (%) (Auto) 7.0 % (1.0-10.0) Eosinophils (%) (Auto) 1.2 % (0.0-3.0) Basophils (%) (Auto) 0.5 % (0.0-2.0) Sodium Level 141 mEQ/L (135-145) Potassium Level 3.8 mEQ/L (3.4-4.9) Chloride Level 97 mEQ/L (98-107) L Carbon Dioxide Level 33 mEQ/L (20-30) H Anion Gap 11 (5-15) Blood Urea Nitrogen 36 mg/dL (7-23) H Creatinine 0.9 mg/dL (0.7-1.2) Estimat Glomerular Filtration Rate mL/min (>60) Glucose Level 114 mg/dL (74-106) H Calcium Level 8.7 mg/dL (8.6-10.2) Total Bilirubin 0.4 mg/dL (0.0-1.2) Aspartate Amino Transf (AST/SGOT) 31 U/L (5-40) Alanine Aminotransferase (ALT/SGPT) 21 U/L (3-41) Alkaline Phosphatase 175 U/L (40-129) H Total Protein 7.4 g/dL (6.6-8.7) Albumin 3.0 g/dL (3.5-5.2) L Globulin 4.4 g/dL Albumin/Globulin Ratio 0.6 (1.0-2.7) L Vancomycin Level Trough 31.3 ug/mL (5.0-12.0) H Current Medications Medications (Trade) Dose Ordered Sig/Eber Route PRN Reason Start Time Stop Time Status Last Admin Dose Admin Albuterol Sulfate (Proventil) 2.5 mg Q6H PRN HHN Bronchospasm 10/31/16 21:45 11/05/16 21:44 Ascorbic Acid (Vitamin C) 500 mg TWICE A DAY GT 10/31/16 22:10 11/30/16 22:09 11/02/16 18:00 Ipratropium [place] (Atrovent) 3 mcg Q6H PRN HHN Bronchospasm 10/31/16 21:45 11/05/16 21:44 Metoprolol Tartrate (Lopressor) 12.5 mg EVERY 12 HOURS GT 10/31/16 22:10 11/30/16 22:09 11/01/16 09:55 Multivitamins Therapeutic (Therapeutic Multivitamin) 1 ea DAILY ORAL 11/01/16 09:00 12/01/16 08:59 11/02/16 08:04 Piperacillin Sod/ Tazobactam Sod/ Sodium Chloride (Zosyn/Sodium Chloride) 110 ml @ 27.5 mls/hr EVERY 8 HOURS IVPB 11/01/16 15:00 11/08/16 14:59 11/02/16 13:53 Sorbitol 30 ml 30 ml TWICE A DAY GT 11/01/16 09:00 12/01/16 08:59 11/02/16 18:00 Vancomycin HCl (Vanco rx to dose) 1 ea DAILY PRN MISC PER RX PROTOCOL 11/02/16 10:15 12/02/16 10:14 Chloe Beavers M.D. Nov 02, 2016 21:26
[2016-11-03] VITALS (7 sets, daily range): BP systolic 110–133; BP diastolic 53–75
--- NOTE | 2016-11-03 01:38 | Progress Note ---
DATE: 11/02/2016 CARDIOLOGY PROGRESS NOTE TIME: 0900 hours. SUBJECTIVE: The patient has episodes of slow ventricular rates in the 50s, digoxin was discontinued yesterday. The patient is on ventilator support. Secretions have remained moderate. PHYSICAL EXAMINATION: VITAL SIGNS: Blood pressure 115/53, pulse 51, respiratory rate 14, and afebrile. LUNGS: Bilateral breath sounds with rhonchi. HEART: Irregularly irregular rhythm. Normal S1 and S2. ABDOMEN: Soft. EXTREMITIES: Trace edema. HOSPITAL COURSE: No apparent chest pain noted. LABORATORY DATA: White count 10.5 and hemoglobin is 11, troponin is negative. BUN 36 and creatinine 0.9. Potassium 3.8. Albumin 3.0. IMPRESSION: 1. Atrial fibrillation, paroxysmal and now with slow ventricular response. This is expected to improve as digoxin levels dissipate. For now low-dose beta blockers continued with hold parameters. 2. Protein calorie malnutrition, mild, on protein supplementation. 3. Acute on chronic diastolic congestive heart failure with diuresis ongoing. 4. Multiple sclerosis. No signs of unstable coronary syndrome. PLAN: 1. Antibiotics. 2. Diuresis. 3. Low-dose beta-kenrick with hold parameters. 4. Digitalis discontinued with no plans to resume. Jamarcus Graves M.D. DR: DIOGENES JOB#: [id number] CC: MARYBETH
[2016-11-03] MEDS: Piperacillin/Tazobactam 3.375 GM in NS 110 ML IVPB SCH ×3 (05:30→21:36)
[2016-11-03] MEDS: Sorbitol Solution UD 30ml GT SCH ×2 (09:23→18:28)
[2016-11-03] MEDS: Ascorbic Acid 500mg tab GT SCH ×2 (09:24→18:28)
[2016-11-03] MEDS: Metoprolol 25mg tab GT SCH (09:24)
[2016-11-03] MEDS: Multivitamin w/Minerals tab ORAL SCH (09:24)
--- NOTE | 2016-11-03 10:29 | General Progress Note ---
Assessment/Plan Problem List: (1) Acute respiratory failure ICD Codes: J96.00 - Acute respiratory failure, unspecified whether with hypoxia or hypercapnia SNOMED: 75689918 (2) CHF (congestive heart failure) ICD Codes: I50.9 - Heart failure, unspecified SNOMED: 63074191 Qualifiers: Qualified Codes: I50.9 - Heart failure, unspecified (3) Renal failure ICD Codes: N19 - Unspecified kidney failure SNOMED: 62709426 (4) Sepsis ICD Codes: A41.9 - Sepsis, unspecified organism SNOMED: 57139334 (5) Acute exacerbation of CHF (congestive heart failure) ICD Codes: I50.9 - Heart failure, unspecified SNOMED: 03869117 (6) Ventilator dependent ICD Codes: Z99.11 - Dependence on respirator [ventilator] status SNOMED: 875088084 (7) Acute on chronic respiratory failure ICD Codes: J96.20 - Acute and chronic respiratory failure, unspecified whether with hypoxia or hypercapnia SNOMED: 05085636, 83556922 Status: progressing Assessment/Plan afebrile vitals stable chf exacerbation trach and peg resp insuff no chest pain today Subjective ROS Limited/Unobtainable: Yes Constitutional: Reports: no symptoms HEENT: Reports: no symptoms Allergies: Coded Allergies: SULFA (SULFONAMIDE ANTIBIOTICS) (Verified Allergy, Severe, 11/01/16) HISTORY OF GBS; 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, 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 Objective Last 24 Hour Vital Signs Date Time Temp Pulse Resp B/P Pulse Ox O2 Delivery O2 Flow Rate FiO2 11/03/16 09:24 73 133/67 11/03/16 08:55 73 14 45 11/03/16 08:00 85 11/03/16 08:00 97.3 67 13 133/67 98 Mechanical Ventilator 45 11/03/16 07:11 66 16 45 11/03/16 05:33 50 11/03/16 05:17 67 16 50 11/03/16 05:17 50 11/03/16 04:00 80 11/03/16 04:00 97.7 63 21 127/75 100 Mechanical Ventilator 11/03/16 04:00 59 11/03/16 03:14 62 12 60 11/03/16 01:23 60 11/03/16 01:23 55 11 60 11/03/16 00:00 80 11/03/16 00:00 97.9 70 21 123/59 100 Mechanical Ventilator 11/02/16 23:54 57 11/02/16 23:12 62 14 80 11/02/16 21:20 69 14 80 11/02/16 21:00 55 103/57 11/02/16 20:00 80 11/02/16 20:00 98.0 61 19 103/57 97 Mechanical Ventilator 11/02/16 19:38 62 11/02/16 19:22 65 18 80 11/02/16 16:00 97.7 59 17 103/48 99 Mechanical Ventilator 80 11/02/16 16:00 80 11/02/16 15:35 63 11/02/16 15:15 64 13 80 11/02/16 12:53 60 15 80 11/02/16 12:00 80 11/02/16 12:00 97.5 60 14 118/71 100 Mechanical Ventilator 80 11/02/16 11:45 61 11/02/16 11:29 64 14 80 Intake and Output 11/02/16 11/03/16 19:00 07:00 Intake Total 552.5 ml 557.5 ml Output Total 250 ml 200 ml Balance 302.5 ml 357.5 ml Free Water 200 ml IV Total 192.5 ml 27.5 ml Tube Feeding 360 ml 330 ml Output Urine Total 250 ml 200 ml # Bowel Movements 1 Laboratory Tests 11/03/16 08:30: Random Vancomycin Level 14.8 Height (Feet): 5 Height (Inches): 8.00 Weight (Pounds): 200 General Appearance: confused Neck: supple Cardiovascular: normal rate Respiratory/Chest: lungs clear Bryant Zazueta MD Nov 03, 2016 10:29
--- NOTE | 2016-11-03 11:16 | Pulmonology Progress Note ---
Assessment/Plan Problems: (1) Acute on chronic respiratory failure (2) Ventilator dependent (3) Acute exacerbation of CHF (congestive heart failure) (4) ACS (acute coronary syndrome) Respiratory: monitor respiratory rate, adjust FIO2 Cardiac: continue to monitor HR/BP, other - heart rate controlled, no bradycardia Renal: F/U I&O, other Infectious Disease: check cultures - GNB in urine, sensitivity pending Gastrointestinal: continue feedings/current rate Endocrine: monitor blood sugar, continue sliding scale insulin Hematologic: monitor H/H, transfuse if hgb<8.5 Neurologic: keep patient comfortable Affect: PRN ativan Prophylaxis: Protonix, Heparin Notes Reviewed: organ tuner, cardio, renal Discussed with: nurses, consultants, welfare case worker Subjective ROS Limited/Unobtainable: No Interval Events: comfortable, Allergies: Coded Allergies: SULFA (SULFONAMIDE ANTIBIOTICS) (Verified Allergy, Severe, 11/01/16) HISTORY OF GBS; 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, 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 Objective Last 24 Hour Vital Signs Date Time Temp Pulse Resp B/P Pulse Ox O2 Delivery O2 Flow Rate FiO2 11/03/16 11:09 62 16 45 11/03/16 09:24 73 133/67 11/03/16 08:55 73 14 45 11/03/16 08:00 85 11/03/16 08:00 97.3 67 13 133/67 98 Mechanical Ventilator 45 11/03/16 07:11 66 16 45 11/03/16 05:33 50 11/03/16 05:17 67 16 50 11/03/16 05:17 50 11/03/16 04:00 80 11/03/16 04:00 97.7 63 21 127/75 100 Mechanical Ventilator 11/03/16 04:00 59 11/03/16 03:14 62 12 60 11/03/16 01:23 60 11/03/16 01:23 55 11 60 11/03/16 00:00 80 11/03/16 00:00 97.9 70 21 123/59 100 Mechanical Ventilator 11/02/16 23:54 57 11/02/16 23:12 62 14 80 11/02/16 21:20 69 14 80 11/02/16 21:00 55 103/57 11/02/16 20:00 80 11/02/16 20:00 98.0 61 19 103/57 97 Mechanical Ventilator 11/02/16 19:38 62 11/02/16 19:22 65 18 80 11/02/16 16:00 97.7 59 17 103/48 99 Mechanical Ventilator 80 11/02/16 16:00 80 11/02/16 15:35 63 11/02/16 15:15 64 13 80 11/02/16 12:53 60 15 80 11/02/16 12:00 80 11/02/16 12:00 97.5 60 14 118/71 100 Mechanical Ventilator 80 11/02/16 11:45 61 11/02/16 11:29 64 14 80 Intake and Output 11/02/16 11/03/16 19:00 07:00 Intake Total 552.5 ml 637.5 ml Output Total 250 ml 200 ml Balance 302.5 ml 437.5 ml Free Water 250 ml IV Total 192.5 ml 27.5 ml Tube Feeding 360 ml 360 ml Output Urine Total 250 ml 200 ml # Bowel Movements 1 General Appearance: WD/WN HEENT: normocephalic Respiratory/Chest: chest wall non-tender, lungs clear Cardiovascular: normal peripheral pulses, normal rate Abdomen: normal bowel sounds, soft, non tender Extremities: no cyanosis Skin: no rash Neurologic/Psychiatric: lan engineer II-XII grossly normal, no motor/sensory deficits Lymphatic: no neck adenopathy Musculoskeletal: normal muscle bulk Microbiology Date/Time Source Procedure Growth Status 10/31/16 13:00 Blood Blood Culture - Preliminary NO GROWTH AFTER 48 HOURS Resulted 10/31/16 12:45 Blood Blood Culture - Preliminary NO GROWTH AFTER 48 HOURS Resulted 10/31/16 22:40 Sputum Expectorated Gram Stain - Final Resulted 10/31/16 22:40 Sputum Expectorated Sputum Culture Pending Resulted 11/02/16 05:30 Urine,Clean Catch Urine Culture - Preliminary Gram Negative Bacillus 1 Resulted Laboratory Tests 11/03/16 08:30: Random Vancomycin Level 14.8 Current Medications Medications (Trade) Dose Ordered Sig/Eber Route PRN Reason Start Time Stop Time Status Last Admin Dose Admin Albuterol Sulfate (Proventil) 2.5 mg Q6H PRN HHN Bronchospasm 10/31/16 21:45 11/05/16 21:44 Ascorbic Acid (Vitamin C) 500 mg TWICE A DAY GT 10/31/16 22:10 11/30/16 22:09 11/03/16 09:24 Ipratropium [place] (Atrovent) 3 mcg Q6H PRN HHN Bronchospasm 10/31/16 21:45 11/05/16 21:44 Metoprolol Tartrate (Lopressor) 12.5 mg EVERY 12 HOURS GT 10/31/16 22:10 11/30/16 22:09 11/03/16 09:24 Multivitamins Therapeutic (Therapeutic Multivitamin) 1 ea DAILY ORAL 11/01/16 09:00 12/01/16 08:59 11/03/16 09:24 Piperacillin Sod/ Tazobactam Sod/ Sodium Chloride (Zosyn/Sodium Chloride) 110 ml @ 27.5 mls/hr EVERY 8 HOURS IVPB 11/01/16 15:00 11/08/16 14:59 11/03/16 05:30 Sorbitol 30 ml 30 ml TWICE A DAY GT 11/01/16 09:00 12/01/16 08:59 11/03/16 09:23 Vancomycin HCl (Vanco rx to dose) 1 ea DAILY PRN MISC PER RX PROTOCOL 11/02/16 10:15 12/02/16 10:14 JUAN FRANCISCO SHEN Nov 03, 2016 11:16
--- NOTE | 2016-11-03 15:05 | Infectious Diseases Prog Note ---
Assessment/Plan Problems: (1) UTI (urinary tract infection) Assessment & Plan: with gram negative rods, already on zosyn, await identification and susceptibility (2) HCAP (healthcare-associated pneumonia) Assessment & Plan: on zosyn and vancomycin empirically , await sputum and blood culture (3) Sepsis Assessment & Plan: due to the above , continue vancomycin and zosyn empirically , await blood culture (4) Acute respiratory failure Assessment & Plan: due to pneumonia, intubated on mechanical ventilation, pulmonary is following (5) Acute exacerbation of CHF (congestive heart failure) Assessment & Plan: continue diuresis , cardiology is following (6) ACS (acute coronary syndrome) Assessment & Plan: rule out [place], cardiology is consulted , further management as per cardiology Subjective ROS Limited/Unobtainable: Yes Allergies: Coded Allergies: SULFA (SULFONAMIDE ANTIBIOTICS) (Verified Allergy, Severe, 11/01/16) HISTORY OF GBS; 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, 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 Subjective no major event over night, intubated through his trach, awake and alert, nonverbal , not in distress Objective Vital Signs Last 24 Hour Vital Signs Date Time Temp Pulse Resp B/P Pulse Ox O2 Delivery O2 Flow Rate FiO2 11/03/16 12:50 66 14 45 11/03/16 12:11 50 11/03/16 12:00 97.9 60 14 110/53 97 Mechanical Ventilator 45 11/03/16 12:00 63 11/03/16 11:09 62 16 45 11/03/16 09:24 73 133/67 11/03/16 08:55 73 14 45 11/03/16 08:00 85 11/03/16 08:00 50 11/03/16 08:00 97.3 67 13 133/67 98 Mechanical Ventilator 45 11/03/16 07:11 66 16 45 11/03/16 05:33 50 11/03/16 05:17 67 16 50 11/03/16 05:17 50 11/03/16 04:00 80 11/03/16 04:00 97.7 63 21 127/75 100 Mechanical Ventilator 11/03/16 04:00 59 11/03/16 03:14 62 12 60 11/03/16 01:23 60 11/03/16 01:23 55 11 60 11/03/16 00:00 80 11/03/16 00:00 97.9 70 21 123/59 100 Mechanical Ventilator 11/02/16 23:54 57 11/02/16 23:12 62 14 80 11/02/16 21:20 69 14 80 11/02/16 21:00 55 103/57 11/02/16 20:00 80 11/02/16 20:00 98.0 61 19 103/57 97 Mechanical Ventilator 11/02/16 19:38 62 11/02/16 19:22 65 18 80 11/02/16 16:00 97.7 59 17 103/48 99 Mechanical Ventilator 80 11/02/16 16:00 80 11/02/16 15:35 63 11/02/16 15:15 64 13 80 Height (Feet): 5 Height (Inches): 8.00 Weight (Pounds): 200 General Appearance: WD/WN, no acute distress HEENT: normocephalic, atraumatic, anicteric, mucous membranes moist Respiratory/Chest: chest wall non-tender, normal breath sounds, no respiratory distress, no accessory muscle use, decreased breath sounds, crackles/rales Cardiovascular: normal peripheral pulses, normal rate, regular rhythm, no gallop/murmur Abdomen: normal bowel sounds, soft, non tender, no organomegaly, non distended , no mass Extremities: no cyanosis, no clubbing Skin: no rash, no lesions Microbiology Date/Time Source Procedure Growth Status 10/31/16 22:40 Sputum Expectorated Gram Stain - Final Resulted 10/31/16 22:40 Sputum Expectorated Sputum Culture Pending Resulted 11/02/16 05:30 Urine,Clean Catch Urine Culture - Preliminary Gram Negative Bacillus 1 Resulted Laboratory Tests Test 11/03/16 08:30 Random Vancomycin Level 14.8 ug/mL Current Medications Medications (Trade) Dose Ordered Sig/Eber Route PRN Reason Start Time Stop Time Status Last Admin Dose Admin Albuterol Sulfate (Proventil) 2.5 mg Q6H PRN HHN Bronchospasm 10/31/16 21:45 11/05/16 21:44 Ascorbic Acid (Vitamin C) 500 mg TWICE A DAY GT 10/31/16 22:10 11/30/16 22:09 11/03/16 09:24 Ipratropium [place] (Atrovent) 3 mcg Q6H PRN HHN Bronchospasm 10/31/16 21:45 11/05/16 21:44 Metoprolol Tartrate 12.5 mg 12.5 mg EVERY 12 HOURS GT 11/03/16 21:00 12/03/16 20:59 Multivitamins Therapeutic (Therapeutic Multivitamin) 1 ea DAILY ORAL 11/01/16 09:00 12/01/16 08:59 11/03/16 09:24 Piperacillin Sod/ Tazobactam Sod/ Sodium Chloride (Zosyn/Sodium Chloride) 110 ml @ 27.5 mls/hr EVERY 8 HOURS IVPB 11/01/16 15:00 11/08/16 14:59 11/03/16 15:01 Sorbitol 30 ml 30 ml TWICE A DAY GT 11/01/16 09:00 12/01/16 08:59 11/03/16 09:23 Vancomycin HCl (Vanco rx to dose) 1 ea DAILY PRN MISC PER RX PROTOCOL 11/02/16 10:15 12/02/16 10:14 Vancomycin HCl/ Dextrose (Vancomycin/D5W) 275 ml @ 183.708 mls/hr Q24H IVPB 11/03/16 18:00 11/08/16 17:59 Chloe Beavers M.D. Nov 03, 2016 15:05
--- NOTE | 2016-11-03 15:59 | Cardiology Report ---
APPROVED REPORT EKG Measurement Heart [id number] Atrial fibrillation Low voltage QRS Abnormal ECG
[2016-11-03] MEDS ORDERED: NS 275ml ONE (16:16)
[2016-11-03] MEDS: Vancomycin 1.25 GM in D5W 275 ML IVPB SCH (18:28)
[2016-11-03] MEDS ORDERED: KCl 10% 20 mEq/15ml liquid GT ONE (20:00)
[2016-11-03] MEDS: Metoprolol Tartrate 12.5mg TAB GT SCH (21:23)
--- NOTE | 2016-11-03 23:28 | Progress Note ---
DATE: 11/03/2016 SUBJECTIVE: The patient remains in atrial fibrillation. Ventricular rate is stable 66 to 85. OBJECTIVE: VITAL SIGNS: Blood pressure 133/67, respiratory rate 13 to 16, patient is afebrile. HEENT: Thin trach secretions. LUNGS: Bilateral breath sounds. Few rhonchi. HEART: Irregularly irregular rhythm. Normal S1, S2. A 1/6 systolic apical murmur. ABDOMEN: Soft. G-tube intact. Trace dependent edema. IMPRESSION: 1. Atrial fibrillation, paroxysmal, now rate controlled, on low dose beta-kenrick. No role for digoxin. 2. Mild protein calorie malnutrition, on G-tube replacement. 3. Acute on chronic diastolic congestive heart failure improving with diuresis. No signs of acute coronary insufficiency or angina. PLAN: Continue current cardiovascular regimen. No resumption of digoxin. Maintain beta-blockade, diuresis, antimicrobials, ventilator support. No plans for anticoagulation in view of increased risk of complications in this clinical setting. Jamarcus Graves M.D. DR: LANDRY JOB#: [id number] CC:
[2016-11-04] VITALS (7 sets, daily range): BP systolic 105–126; BP diastolic 56–78
--- NOTE | 2016-11-04 02:27 | Progress Note ---
DATE: 11/04/2016 CARDIOLOGY PROGRESS NOTE SUBJECTIVE: The patient is without distress. He remains on BiPAP support. The patient is afebrile. Monitored atrial fibrillation with no pauses. OBJECTIVE: VITAL SIGNS: Blood pressure 116/56, heart rate 66, and respiratory rate 21. LUNGS: Bilateral breath sounds. Scattered rhonchi. HEART: Irregularly irregular rhythm. Normal S1 and S2. ABDOMEN: Soft. EXTREMITIES: No edema. LABORATORY DATA: Pending. IMPRESSION: 1. Atrial fibrillation now rate controlled. Off digoxin and will continue low-dose beta-kenrick. He notes anginal episode with no signs of recurrence and no signs of acute coronary insufficiency. We will maintain current cardiovascular regimen with beta-kenrick and we will add aspirin. 2. Acute on chronic diastolic congestive heart failure mostly compensated now following diuresis. We will continue maintenance diuretic therapy at this time. Jamarcus Graves M.D. DR: DIEGO JOB#: [id number] CC:
[2016-11-04 04:59] LABS: BASOPHILS % (AUTO) 1.4 % (0.0-2.0); EOSINOPHILS % (AUTO) 8.2 % (0.0-3.0); LYMPHOCYTES % (AUTO) 7.8 % (20.0-45.0); MEAN CORPUSCULAR HEMOGLOBIN 28.2 PG (27.0-31.0); MEAN CORPUSCULAR HGB CONC 30.9 G/DL (32.0-36.0); MEAN CORPUSCULAR VOLUME 91 FL (80-99); MONOCYTES % (AUTO) 5.3 % (1.0-10.0); NEUTROPHILS % (AUTO) 77.3 % (45.0-75.0); PLATELET COUNT 212 K/UL (150-450); RED BLOOD COUNT 4.16 M/UL (4.70-6.10); RED CELL DISTRIBUTION WIDTH 13.8 % (11.6-14.8)
[2016-11-04 05:20] LABS: ALANINE AMINOTRANSFERASE 18 U/L (3-41); ALBUMIN/GLOBULIN RATIO 0.6 (1.0-2.7); ANION GAP 11 (5-15); ASPARTATE AMINO TRANSFERASE 20 U/L (5-40); CALCIUM 8.8 mg/dL (8.6-10.2); CARBON DIOXIDE 34 mEQ/L (20-30); CHLORIDE 99 mEQ/L (98-107); CREATININE 0.8 mg/dL (0.7-1.2); HEMOLYSIS 1; POTASSIUM 3.4 mEQ/L (3.4-4.9); SODIUM 144 mEQ/L (135-145); TOTAL PROTEIN 7.1 g/dL (6.6-8.7)
[2016-11-04] MEDS: Piperacillin/Tazobactam 3.375 GM in NS 110 ML IVPB SCH ×3 (05:30→22:16)
[2016-11-04] MEDS: Furosemide 40mg tab GT SCH (08:58)
[2016-11-04] MEDS: Aspirin Baby 81mg NG SCH (08:58)
[2016-11-04] MEDS: Ascorbic Acid 500mg tab GT SCH ×2 (08:58→17:53)
[2016-11-04] MEDS: Multivitamin w/Minerals tab ORAL SCH (08:59)
[2016-11-04] MEDS: Metoprolol Tartrate 12.5mg TAB GT SCH ×2 (08:59→20:34)
[2016-11-04] MEDS: KCl 10% 20 mEq/15ml liquid NG SCH (09:00)
[2016-11-04] MEDS: Sorbitol Solution UD 30ml GT SCH ×2 (09:00→17:53)
--- NOTE | 2016-11-04 10:41 | Pulmonology Progress Note ---
Assessment/Plan Problems: (1) Acute on chronic respiratory failure (2) Ventilator dependent (3) Acute exacerbation of CHF (congestive heart failure) (4) ACS (acute coronary syndrome) Respiratory: monitor respiratory rate, adjust FIO2, other - awaiting thoracentesis Cardiac: other - heart rate contolled Renal: F/U I&O, keep IV fluid Infectious Disease: check cultures, continue antibiotics Gastrointestinal: continue feedings/current rate Endocrine: monitor blood sugar, check TSH, check HgA1C, continue sliding scale insulin Hematologic: monitor H/H, transfuse if hgb<8.5 Neurologic: PRN Ativan, keep patient comfortable Affect: PRN ativan Prophylaxis: Protonix Notes Reviewed: custom marine canvas fabricator, cardio Discussed with: nurses, dependency case manager Subjective ROS Limited/Unobtainable: No Constitutional: Reports: no symptoms HEENT: Repors: no symptoms Allergies: Coded Allergies: SULFA (SULFONAMIDE ANTIBIOTICS) (Verified Allergy, Severe, 11/01/16) HISTORY OF GBS; 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, 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 Objective Last 24 Hour Vital Signs Date Time Temp Pulse Resp B/P Pulse Ox O2 Delivery O2 Flow Rate FiO2 11/04/16 09:21 68 14 50 11/04/16 08:59 69 126/71 11/04/16 08:00 61 11/04/16 08:00 97.5 69 18 126/71 99 Mechanical Ventilator 50 11/04/16 08:00 50 11/04/16 06:36 68 12 50 11/04/16 05:03 67 12 50 11/04/16 04:00 97.3 62 21 105/74 98 Mechanical Ventilator 40 66 11/04/16 04:00 65 11/04/16 04:00 50 11/04/16 03:18 62 13 50 11/04/16 00:45 69 25 50 11/04/16 00:00 50 11/04/16 00:00 97.3 66 21 116/56 98 Mechanical Ventilator 66 11/03/16 23:49 65 11/03/16 22:57 61 14 50 11/03/16 21:23 82 120/58 11/03/16 21:20 97.8 82 13 120/58 98 Mechanical Ventilator 50 11/03/16 20:39 76 21 50 11/03/16 20:00 97.6 86 18 120/58 100 Mechanical Ventilator 40 11/03/16 20:00 50 11/03/16 20:00 81 11/03/16 19:30 68 13 50 11/03/16 17:21 71 11 50 11/03/16 16:12 45 11/03/16 16:00 97.8 72 13 119/60 98 Mechanical Ventilator 45 11/03/16 16:00 71 11/03/16 15:30 69 14 45 11/03/16 12:50 66 14 45 11/03/16 12:11 50 11/03/16 12:00 97.9 60 14 110/53 97 Mechanical Ventilator 45 11/03/16 12:00 63 11/03/16 11:09 62 16 45 Intake and Output 11/03/16 11/04/16 19:00 07:00 Intake Total 570 ml 450 ml Output Total 95 ml 501 ml Balance 475 ml -51 ml Free Water 150 ml 150 ml Tube Feeding 360 ml 300 ml Other 60 ml Output Urine Total 95 ml 500 ml Stool Total 1 ml # Voids 1 # Bowel Movements 1 General Appearance: WD/WN HEENT: normocephalic, atraumatic Respiratory/Chest: chest wall non-tender, crackles/rales Cardiovascular: normal peripheral pulses, normal rate Abdomen: normal bowel sounds, soft, non tender Genitourinary: normal external genitalia Extremities: no cyanosis Neurologic/Psychiatric: theatre manager II-XII grossly normal, no motor/sensory deficits Microbiology Date/Time Source Procedure Growth Status 11/02/16 05:30 Urine,Clean Catch Urine Culture - Preliminary Escherichia Coli Resulted Laboratory Tests 11/04/16 03:40: White Blood Count 11.0H, Red Blood Count 4.16L, Hemoglobin 11.7L, Hematocrit 38.0L, Mean Corpuscular Volume 91, Mean Corpuscular Hemoglobin 28.2, Mean Corpuscular Hemoglobin Concent 30.9L, Red Cell Distribution Width 13.8, Platelet Count 212, Mean Platelet Volume 8.0, Neutrophils (%) (Auto) 77.3H, Lymphocytes (%) (Auto) 7.8L, Monocytes (%) (Auto) 5.3, Eosinophils (%) (Auto) 8.2H, Basophils (%) (Auto) 1.4, Sodium Level 144, Potassium Level 3.4, Chloride Level 99, Carbon Dioxide Level 34H, Anion Gap 11, Blood Urea Nitrogen 23, Creatinine 0.8, Estimat Glomerular Filtration Rate , Glucose Level 123H, Calcium Level 8.8, Total Bilirubin 0.8, Aspartate Amino Transf (AST/SGOT) 20, Alanine Aminotransferase (ALT/SGPT) 18, Alkaline Phosphatase 153H, Pro-B-Type Natriuretic Peptide 3952H, Total Protein 7.1, Albumin 2.9L, Globulin 4.2, Albumin/Globulin Ratio 0.6L Current Medications Medications (Trade) Dose Ordered Sig/Eber Route PRN Reason Start Time Stop Time Status Last Admin Dose Admin Albuterol Sulfate (Proventil) 2.5 mg Q6H PRN HHN Bronchospasm 10/31/16 21:45 11/05/16 21:44 Ascorbic Acid (Vitamin C) 500 mg TWICE A DAY GT 10/31/16 22:10 11/30/16 22:09 11/04/16 08:58 Aspirin (ASA) 81 mg DAILY NG 11/04/16 09:00 12/04/16 08:59 11/04/16 08:58 Furosemide (Lasix) 40 mg DAILY GT 11/04/16 09:00 12/04/16 08:59 11/04/16 08:58 Ipratropium [place] (Atrovent) 3 mcg Q6H PRN HHN Bronchospasm 10/31/16 21:45 11/05/16 21:44 Metoprolol Tartrate 12.5 mg 12.5 mg EVERY 12 HOURS GT 11/03/16 21:00 12/03/16 20:59 11/04/16 08:59 Multivitamins Therapeutic (Therapeutic Multivitamin) 1 ea DAILY ORAL 11/01/16 09:00 12/01/16 08:59 11/04/16 08:59 Piperacillin Sod/ Tazobactam Sod/ Sodium Chloride (Zosyn/Sodium Chloride) 110 ml @ 27.5 mls/hr EVERY 8 HOURS IVPB 11/01/16 15:00 11/08/16 14:59 11/04/16 05:30 Potassium Chloride (KCl 10% 20 mEq oral solution) 10 meq DAILY NG 11/04/16 09:00 12/04/16 08:59 11/04/16 09:00 Sorbitol 30 ml 30 ml TWICE A DAY GT 11/01/16 09:00 12/01/16 08:59 11/04/16 09:00 Vancomycin HCl (Vanco rx to dose) 1 ea DAILY PRN MISC PER RX PROTOCOL 11/02/16 10:15 12/02/16 10:14 Vancomycin HCl/ Dextrose (Vancomycin/D5W) 275 ml @ 183.708 mls/hr Q24H IVPB 11/03/16 18:00 11/08/16 17:59 11/03/16 18:28 JUAN FRANCISCO SHEN Nov 04, 2016 10:40
--- NOTE | 2016-11-04 12:32 | General Progress Note ---
Assessment/Plan Problem List: (1) Acute respiratory failure ICD Codes: J96.00 - Acute respiratory failure, unspecified whether with hypoxia or hypercapnia SNOMED: 66440968 (2) CHF (congestive heart failure) ICD Codes: I50.9 - Heart failure, unspecified SNOMED: 96953033 Qualifiers: Qualified Codes: I50.9 - Heart failure, unspecified (3) Renal failure ICD Codes: N19 - Unspecified kidney failure SNOMED: 91676528 (4) Sepsis ICD Codes: A41.9 - Sepsis, unspecified organism SNOMED: 94714869 (5) Acute exacerbation of CHF (congestive heart failure) ICD Codes: I50.9 - Heart failure, unspecified SNOMED: 30244048 (6) Ventilator dependent ICD Codes: Z99.11 - Dependence on respirator [ventilator] status SNOMED: 193251723 (7) Acute on chronic respiratory failure ICD Codes: J96.20 - Acute and chronic respiratory failure, unspecified whether with hypoxia or hypercapnia SNOMED: 28496635, 48787141 Status: progressing Assessment/Plan trach and peg chf and pna is improving resp insuff afebrile reviewed chart anf labs Subjective ROS Limited/Unobtainable: Yes Constitutional: Reports: no symptoms Allergies: Coded Allergies: SULFA (SULFONAMIDE ANTIBIOTICS) (Verified Allergy, Severe, 11/01/16) HISTORY OF GBS; 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, 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 Objective Last 24 Hour Vital Signs Date Time Temp Pulse Resp B/P Pulse Ox O2 Delivery O2 Flow Rate FiO2 11/04/16 12:13 50 11/04/16 12:11 97.0 60 18 116/64 96 Mechanical Ventilator 50 11/04/16 12:00 97.0 60 18 116/64 96 Mechanical Ventilator 50 11/04/16 11:01 60 13 50 11/04/16 09:21 68 14 50 11/04/16 08:59 69 126/71 11/04/16 08:00 61 11/04/16 08:00 97.5 69 18 126/71 99 Mechanical Ventilator 50 11/04/16 08:00 50 11/04/16 06:36 68 12 50 11/04/16 05:03 67 12 50 11/04/16 04:00 97.3 62 21 105/74 98 Mechanical Ventilator 40 66 11/04/16 04:00 65 11/04/16 04:00 50 11/04/16 03:18 62 13 50 11/04/16 00:45 69 25 50 11/04/16 00:00 50 11/04/16 00:00 97.3 66 21 116/56 98 Mechanical Ventilator 66 11/03/16 23:49 65 11/03/16 22:57 61 14 50 11/03/16 21:23 82 120/58 11/03/16 21:20 97.8 82 13 120/58 98 Mechanical Ventilator 50 11/03/16 20:39 76 21 50 11/03/16 20:00 97.6 86 18 120/58 100 Mechanical Ventilator 40 11/03/16 20:00 50 11/03/16 20:00 81 11/03/16 19:30 68 13 50 11/03/16 17:21 71 11 50 11/03/16 16:12 45 11/03/16 16:00 97.8 72 13 119/60 98 Mechanical Ventilator 45 11/03/16 16:00 71 11/03/16 15:30 69 14 45 11/03/16 12:50 66 14 45 Intake and Output 11/03/16 11/04/16 19:00 07:00 Intake Total 570 ml 530 ml Output Total 95 ml 501 ml Balance 475 ml 29 ml Free Water 150 ml 200 ml Tube Feeding 360 ml 330 ml Other 60 ml Output Urine Total 95 ml 500 ml Stool Total 1 ml # Voids 1 # Bowel Movements 1 Laboratory Tests 11/04/16 03:40: White Blood Count 11.0H, Red Blood Count 4.16L, Hemoglobin 11.7L, Hematocrit 38.0L, Mean Corpuscular Volume 91, Mean Corpuscular Hemoglobin 28.2, Mean Corpuscular Hemoglobin Concent 30.9L, Red Cell Distribution Width 13.8, Platelet Count 212, Mean Platelet Volume 8.0, Neutrophils (%) (Auto) 77.3H, Lymphocytes (%) (Auto) 7.8L, Monocytes (%) (Auto) 5.3, Eosinophils (%) (Auto) 8.2H, Basophils (%) (Auto) 1.4, Sodium Level 144, Potassium Level 3.4, Chloride Level 99, Carbon Dioxide Level 34H, Anion Gap 11, Blood Urea Nitrogen 23, Creatinine 0.8, Estimat Glomerular Filtration Rate , Glucose Level 123H, Calcium Level 8.8, Total Bilirubin 0.8, Aspartate Amino Transf (AST/SGOT) 20, Alanine Aminotransferase (ALT/SGPT) 18, Alkaline Phosphatase 153H, Pro-B-Type Natriuretic Peptide 3952H, Total Protein 7.1, Albumin 2.9L, Globulin 4.2, Albumin/Globulin Ratio 0.6L Height (Feet): 5 Height (Inches): 8.00 Weight (Pounds): 200 EENT: PERRL/EOMI Neck: supple Cardiovascular: normal rate Respiratory/Chest: lungs clear Bryant Zazueta MD Nov 04, 2016 12:32
--- NOTE | 2016-11-04 14:56 | Infectious Diseases Prog Note ---
Assessment/Plan Problems: (1) UTI (urinary tract infection) Assessment & Plan: with E coli , will start nitrofurantoin , since it is resistant to zosyn . (2) HCAP (healthcare-associated pneumonia) Assessment & Plan: on zosyn and vancomycin empirically , await sputum and blood culture (3) Sepsis Assessment & Plan: due to the above , continue vancomycin and zosyn empirically , await blood culture (4) Acute respiratory failure Assessment & Plan: due to pneumonia, intubated on mechanical ventilation, pulmonary is following (5) Acute exacerbation of CHF (congestive heart failure) Assessment & Plan: continue diuresis , cardiology is following (6) ACS (acute coronary syndrome) Assessment & Plan: cardiology is following , further management as per cardiology Subjective ROS Limited/Unobtainable: Yes Allergies: Coded Allergies: SULFA (SULFONAMIDE ANTIBIOTICS) (Verified Allergy, Severe, 11/01/16) HISTORY OF GBS; 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, 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 Subjective he was doing well, intubated through his trach, awake and alert , nonverbal , not in distress Objective Vital Signs Last 24 Hour Vital Signs Date Time Temp Pulse Resp B/P Pulse Ox O2 Delivery O2 Flow Rate FiO2 11/04/16 12:52 54 12 50 11/04/16 12:13 50 11/04/16 12:11 97.0 60 18 116/64 96 Mechanical Ventilator 50 11/04/16 12:00 97.0 60 18 116/64 96 Mechanical Ventilator 50 11/04/16 11:01 60 13 50 11/04/16 09:21 68 14 50 11/04/16 08:59 69 126/71 11/04/16 08:00 61 11/04/16 08:00 97.5 69 18 126/71 99 Mechanical Ventilator 50 11/04/16 08:00 50 11/04/16 06:36 68 12 50 11/04/16 05:03 67 12 50 11/04/16 04:00 97.3 62 21 105/74 98 Mechanical Ventilator 40 66 11/04/16 04:00 65 11/04/16 04:00 50 11/04/16 03:18 62 13 50 11/04/16 00:45 69 25 50 11/04/16 00:00 50 11/04/16 00:00 97.3 66 21 116/56 98 Mechanical Ventilator 66 11/03/16 23:49 65 11/03/16 22:57 61 14 50 11/03/16 21:23 82 120/58 11/03/16 21:20 97.8 82 13 120/58 98 Mechanical Ventilator 50 11/03/16 20:39 76 21 50 11/03/16 20:00 97.6 86 18 120/58 100 Mechanical Ventilator 40 11/03/16 20:00 50 11/03/16 20:00 81 11/03/16 19:30 68 13 50 11/03/16 17:21 71 11 50 11/03/16 16:12 45 11/03/16 16:00 97.8 72 13 119/60 98 Mechanical Ventilator 45 11/03/16 16:00 71 11/03/16 15:30 69 14 45 Height (Feet): 5 Height (Inches): 8.00 Weight (Pounds): 200 General Appearance: WD/WN, no acute distress HEENT: normocephalic, atraumatic, anicteric, supple, status post trach Respiratory/Chest: chest wall non-tender, no respiratory distress, no accessory muscle use, decreased breath sounds, crackles/rales Cardiovascular: normal peripheral pulses, normal rate, regular rhythm, no gallop/murmur Abdomen: normal bowel sounds, soft, non tender, no organomegaly, non distended , no mass Extremities: no cyanosis, no clubbing Skin: no rash, no lesions Microbiology Date/Time Source Procedure Growth Status 11/02/16 05:30 Urine,Clean Catch Urine Culture - Preliminary Escherichia Coli Resulted Laboratory Tests Test 11/04/16 03:40 White Blood Count 11.0 K/UL (4.8-10.8) H Red Blood Count 4.16 M/UL (4.70-6.10) L Hemoglobin 11.7 G/DL (14.2-18.0) L Hematocrit 38.0 % (42.0-52.0) L Mean Corpuscular Volume 91 FL (80-99) Mean Corpuscular Hemoglobin 28.2 PG (27.0-31.0) Mean Corpuscular Hemoglobin Concent 30.9 G/DL (32.0-36.0) L Red Cell Distribution Width 13.8 % (11.6-14.8) Platelet Count 212 K/UL (150-450) Mean Platelet Volume 8.0 FL (6.5-10.1) Neutrophils (%) (Auto) 77.3 % (45.0-75.0) H Lymphocytes (%) (Auto) 7.8 % (20.0-45.0) L Monocytes (%) (Auto) 5.3 % (1.0-10.0) Eosinophils (%) (Auto) 8.2 % (0.0-3.0) H Basophils (%) (Auto) 1.4 % (0.0-2.0) Sodium Level 144 mEQ/L (135-145) Potassium Level 3.4 mEQ/L (3.4-4.9) Chloride Level 99 mEQ/L (98-107) Carbon Dioxide Level 34 mEQ/L (20-30) H Anion Gap 11 (5-15) Blood Urea Nitrogen 23 mg/dL (7-23) Creatinine 0.8 mg/dL (0.7-1.2) Estimat Glomerular Filtration Rate mL/min (>60) Glucose Level 123 mg/dL (74-106) H Calcium Level 8.8 mg/dL (8.6-10.2) Total Bilirubin 0.8 mg/dL (0.0-1.2) Aspartate Amino Transf (AST/SGOT) 20 U/L (5-40) Alanine Aminotransferase (ALT/SGPT) 18 U/L (3-41) Alkaline Phosphatase 153 U/L (40-129) H Pro-B-Type Natriuretic Peptide 3952 pg/mL (0-450) H Total Protein 7.1 g/dL (6.6-8.7) Albumin 2.9 g/dL (3.5-5.2) L Globulin 4.2 g/dL Albumin/Globulin Ratio 0.6 (1.0-2.7) L Current Medications Medications (Trade) Dose Ordered Sig/Eber Route PRN Reason Start Time Stop Time Status Last Admin Dose Admin Albuterol Sulfate (Proventil) 2.5 mg Q6H PRN HHN Bronchospasm 10/31/16 21:45 11/05/16 21:44 Ascorbic Acid (Vitamin C) 500 mg TWICE A DAY GT 10/31/16 22:10 11/30/16 22:09 11/04/16 08:58 Aspirin (ASA) 81 mg DAILY NG 11/04/16 09:00 12/04/16 08:59 11/04/16 08:58 Furosemide (Lasix) 40 mg DAILY GT 11/04/16 09:00 12/04/16 08:59 11/04/16 08:58 Ipratropium [place] (Atrovent) 3 mcg Q6H PRN HHN Bronchospasm 10/31/16 21:45 11/05/16 21:44 Metoprolol Tartrate 12.5 mg 12.5 mg EVERY 12 HOURS GT 11/03/16 21:00 12/03/16 20:59 11/04/16 08:59 Multivitamins Therapeutic (Therapeutic Multivitamin) 1 ea DAILY ORAL 11/01/16 09:00 12/01/16 08:59 11/04/16 08:59 Piperacillin Sod/ Tazobactam Sod/ Sodium Chloride (Zosyn/Sodium Chloride) 110 ml @ 27.5 mls/hr EVERY 8 HOURS IVPB 11/01/16 15:00 11/08/16 14:59 11/04/16 13:52 Potassium Chloride (KCl 10% 20 mEq oral solution) 10 meq DAILY NG 11/04/16 09:00 12/04/16 08:59 11/04/16 09:00 Sorbitol 30 ml 30 ml TWICE A DAY GT 11/01/16 09:00 12/01/16 08:59 11/04/16 09:00 Vancomycin HCl (Vanco rx to dose) 1 ea DAILY PRN MISC PER RX PROTOCOL 11/02/16 10:15 12/02/16 10:14 Vancomycin HCl/ Dextrose (Vancomycin/D5W) 275 ml @ 183.708 mls/hr Q24H IVPB 11/03/16 18:00 11/08/16 17:59 11/03/16 18:28 Chloe Beavers M.D. Nov 04, 2016 14:56
[2016-11-04] MEDS: Nitrofurantoin 50mg cap ORAL SCH (17:53)
[2016-11-04] MEDS: Vancomycin 1.25 GM in D5W 275 ML IVPB SCH (17:54)
[2016-11-05] VITALS: BP 116/54
[2016-11-05] MEDS: Nitrofurantoin 50mg cap ORAL SCH ×2 (00:23→05:59)
[2016-11-05 04:00] VITALS: BP 119/62
[2016-11-05] MEDS: Piperacillin/Tazobactam 3.375 GM in NS 110 ML IVPB SCH (05:59)
[2016-11-05 06:01] LABS: BASOPHILS % (AUTO) 1.2 % (0.0-2.0); EOSINOPHILS % (AUTO) 10.2 % (0.0-3.0); MEAN CORPUSCULAR HGB CONC 30.6 G/DL (32.0-36.0); MEAN CORPUSCULAR VOLUME 91 FL (80-99); MEAN PLATELET VOLUME 7.7 FL (6.5-10.1); MONOCYTES % (AUTO) 4.8 % (1.0-10.0); NEUTROPHILS % (AUTO) 75.8 % (45.0-75.0); PLATELET COUNT 198 K/UL (150-450); RED BLOOD COUNT 3.94 M/UL (4.70-6.10); RED CELL DISTRIBUTION WIDTH 14.1 % (11.6-14.8); WHITE BLOOD COUNT 10.3 K/UL (4.8-10.8)
[2016-11-05 06:24] LABS: ALANINE AMINOTRANSFERASE 15 U/L (3-41); ALBUMIN/GLOBULIN RATIO 0.6 (1.0-2.7); ANION GAP 10 (5-15); ASPARTATE AMINO TRANSFERASE 17 U/L (5-40); CALCIUM 8.7 mg/dL (8.6-10.2); CARBON DIOXIDE 34 mEQ/L (20-30); CHLORIDE 98 mEQ/L (98-107); CREATININE 0.7 mg/dL (0.7-1.2); HEMOLYSIS 6; POTASSIUM 3.5 mEQ/L (3.4-4.9); SODIUM 142 mEQ/L (135-145); TOTAL PROTEIN 7.3 g/dL (6.6-8.7)
[2016-11-05 08:00] VITALS: BP 132/69
--- NOTE | 2016-11-05 08:20 | Diagnostic Imaging Report ---
Indications: DYSPNEA Technique: Portable AP chest Findings: Comparison: 11/02/2016 Diffuse bilateral interstitial infiltrates, bibasal pleural effusions unchanged. Cardiomediastinal silhouette stable. No new abnormality identified. IMPRESSION: Stable bilateral congestive changes versus diffuse interstitial pneumonitis
[2016-11-05] MEDS: Ascorbic Acid 500mg tab GT SCH (09:04)
[2016-11-05] MEDS: Furosemide 40mg tab GT SCH (09:04)
[2016-11-05] MEDS: Sorbitol Solution UD 30ml GT SCH (09:05)
[2016-11-05] MEDS: Multivitamin w/Minerals tab ORAL SCH (09:05)
[2016-11-05] MEDS: Aspirin Baby 81mg NG SCH (09:05)
[2016-11-05 09:06] VITALS: BP 132/69
[2016-11-05] MEDS: Metoprolol Tartrate 12.5mg TAB GT SCH (09:06)
[2016-11-05] MEDS: KCl 10% 20 mEq/15ml liquid NG SCH (09:06)
--- NOTE | 2016-11-05 10:40 | General Progress Note ---
Assessment/Plan Problem List: (1) Acute respiratory failure ICD Codes: J96.00 - Acute respiratory failure, unspecified whether with hypoxia or hypercapnia SNOMED: 28316753 (2) CHF (congestive heart failure) ICD Codes: I50.9 - Heart failure, unspecified SNOMED: 66251503 Qualifiers: Qualified Codes: I50.9 - Heart failure, unspecified (3) Renal failure ICD Codes: N19 - Unspecified kidney failure SNOMED: 64004945 (4) Sepsis ICD Codes: A41.9 - Sepsis, unspecified organism SNOMED: 29251959 (5) Acute exacerbation of CHF (congestive heart failure) ICD Codes: I50.9 - Heart failure, unspecified SNOMED: 51575497 (6) Ventilator dependent ICD Codes: Z99.11 - Dependence on respirator [ventilator] status SNOMED: 561809025 (7) Acute on chronic respiratory failure ICD Codes: J96.20 - Acute and chronic respiratory failure, unspecified whether with hypoxia or hypercapnia SNOMED: 39581180, 63478893 Status: progressing Assessment/Plan stable dc to snf afebrile abx per id reviewed chart and labs Subjective ROS Limited/Unobtainable: Yes Constitutional: Reports: no symptoms Allergies: Coded Allergies: SULFA (SULFONAMIDE ANTIBIOTICS) (Verified Allergy, Severe, 11/01/16) HISTORY OF GBS; 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, 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 Objective Last 24 Hour Vital Signs Date Time Temp Pulse Resp B/P Pulse Ox O2 Delivery O2 Flow Rate FiO2 11/05/16 09:30 35 11/05/16 09:30 65 13 35 11/05/16 09:06 71 132/69 11/05/16 08:00 71 11/05/16 08:00 50 11/05/16 08:00 98.1 57 13 132/69 97 Mechanical Ventilator 50 11/05/16 06:46 65 13 50 11/05/16 05:24 71 12 50 11/05/16 04:00 98.0 63 13 119/62 98 Mechanical Ventilator 50 11/05/16 04:00 61 11/05/16 04:00 50 11/05/16 03:25 61 15 50 11/05/16 01:14 63 12 50 11/05/16 00:00 84 11/05/16 00:00 98.0 61 14 116/54 99 Mechanical Ventilator 50 11/05/16 00:00 50 11/04/16 23:18 57 12 50 11/04/16 21:13 65 12 50 11/04/16 20:34 70 119/78 11/04/16 20:00 97.7 61 14 119/78 98 Mechanical Ventilator 50 11/04/16 20:00 69 11/04/16 20:00 50 11/04/16 19:15 63 15 50 11/04/16 16:31 66 14 50 11/04/16 16:03 50 11/04/16 16:00 70 11/04/16 16:00 97.3 64 20 122/57 93 50 11/04/16 14:46 65 14 50 11/04/16 12:52 54 12 50 11/04/16 12:13 50 11/04/16 12:11 97.0 60 18 116/64 96 Mechanical Ventilator 50 11/04/16 12:00 63 11/04/16 12:00 97.0 60 18 116/64 96 Mechanical Ventilator 50 11/04/16 11:01 60 13 50 Intake and Output 11/04/16 11/05/16 19:00 07:00 Intake Total 580 ml 647.5 ml Output Total 200 ml 300 ml Balance 380 ml 347.5 ml Free Water 100 ml 150 ml IV Total 137.5 ml Tube Feeding 360 ml 360 ml Other 120 ml Output Urine Total 200 ml 300 ml # Bowel Movements 1 3 Laboratory Tests 11/05/16 04:33: White Blood Count 10.3, Red Blood Count 3.94L, Hemoglobin 11.0L, Hematocrit 36.1L, Mean Corpuscular Volume 91, Mean Corpuscular Hemoglobin 28.0, Mean Corpuscular Hemoglobin Concent 30.6L, Red Cell Distribution Width 14.1, Platelet Count 198, Mean Platelet Volume 7.7, Neutrophils (%) (Auto) 75.8H, Lymphocytes (%) (Auto) 8.0L, Monocytes (%) (Auto) 4.8, Eosinophils (%) (Auto) 10.2H, Basophils (%) (Auto) 1.2, Sodium Level 142, Potassium Level 3.5, Chloride Level 98, Carbon Dioxide Level 34H, Anion Gap 10, Blood Urea Nitrogen 22, Creatinine 0.7, Estimat Glomerular Filtration Rate , Glucose Level 116H, Calcium Level 8.7, Total Bilirubin 0.7, Aspartate Amino Transf (AST/SGOT) 17, Alanine Aminotransferase (ALT/SGPT) 15, Alkaline Phosphatase 138H, Total Protein 7.3, Albumin 2.9L, Globulin 4.4, Albumin/Globulin Ratio 0.6L Height (Feet): 5 Height (Inches): 8.00 Weight (Pounds): 200 General Appearance: confused Neck: supple Abdomen: soft Bryant Zazueta MD Nov 05, 2016 10:40
--- NOTE | 2016-11-05 10:40 | Pulmonology Progress Note ---
Assessment/Plan Problems: (1) Acute on chronic respiratory failure (2) Ventilator dependent (3) Acute exacerbation of CHF (congestive heart failure) (4) ACS (acute coronary syndrome) Respiratory: monitor respiratory rate Cardiac: start pressors, continue pressors Infectious Disease: check cultures, continue antibiotics Gastrointestinal: hold feedings Endocrine: monitor blood sugar, check HgA1C, continue sliding scale insulin Hematologic: monitor H/H, transfuse if hgb<8.5 Neurologic: PRN Ativan, keep patient comfortable Prophylaxis: Protonix Notes Reviewed: pondman, cardio Discussed with: nurses, consultants Subjective ROS Limited/Unobtainable: No Allergies: Coded Allergies: SULFA (SULFONAMIDE ANTIBIOTICS) (Verified Allergy, Severe, 11/01/16) HISTORY OF GBS; 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, 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 Objective Last 24 Hour Vital Signs Date Time Temp Pulse Resp B/P Pulse Ox O2 Delivery O2 Flow Rate FiO2 11/05/16 09:30 65 13 35 11/05/16 09:06 71 132/69 11/05/16 08:00 71 11/05/16 08:00 50 11/05/16 08:00 98.1 57 13 132/69 97 Mechanical Ventilator 50 11/05/16 06:46 65 13 50 11/05/16 05:24 71 12 50 11/05/16 04:00 98.0 63 13 119/62 98 Mechanical Ventilator 50 11/05/16 04:00 61 11/05/16 04:00 50 11/05/16 03:25 61 15 50 11/05/16 01:14 63 12 50 11/05/16 00:00 84 11/05/16 00:00 98.0 61 14 116/54 99 Mechanical Ventilator 50 11/05/16 00:00 50 11/04/16 23:18 57 12 50 11/04/16 21:13 65 12 50 11/04/16 20:34 70 119/78 11/04/16 20:00 97.7 61 14 119/78 98 Mechanical Ventilator 50 11/04/16 20:00 69 11/04/16 20:00 50 11/04/16 19:15 63 15 50 11/04/16 16:31 66 14 50 11/04/16 16:03 50 11/04/16 16:00 70 11/04/16 16:00 97.3 64 20 122/57 93 50 11/04/16 14:46 65 14 50 11/04/16 12:52 54 12 50 11/04/16 12:13 50 11/04/16 12:11 97.0 60 18 116/64 96 Mechanical Ventilator 50 11/04/16 12:00 63 11/04/16 12:00 97.0 60 18 116/64 96 Mechanical Ventilator 50 11/04/16 11:01 60 13 50 Intake and Output 11/04/16 11/05/16 19:00 07:00 Intake Total 580 ml 647.5 ml Output Total 200 ml 300 ml Balance 380 ml 347.5 ml Free Water 100 ml 150 ml IV Total 137.5 ml Tube Feeding 360 ml 360 ml Other 120 ml Output Urine Total 200 ml 300 ml # Bowel Movements 1 3 General Appearance: WD/WN, no acute distress HEENT: status post trach Respiratory/Chest: chest wall non-tender, lungs clear Cardiovascular: normal peripheral pulses, normal rate Abdomen: normal bowel sounds, soft, non tender Extremities: no cyanosis, no clubbing Skin: no rash, no lesions Laboratory Tests 11/05/16 04:33: White Blood Count 10.3, Red Blood Count 3.94L, Hemoglobin 11.0L, Hematocrit 36.1L, Mean Corpuscular Volume 91, Mean Corpuscular Hemoglobin 28.0, Mean Corpuscular Hemoglobin Concent 30.6L, Red Cell Distribution Width 14.1, Platelet Count 198, Mean Platelet Volume 7.7, Neutrophils (%) (Auto) 75.8H, Lymphocytes (%) (Auto) 8.0L, Monocytes (%) (Auto) 4.8, Eosinophils (%) (Auto) 10.2H, Basophils (%) (Auto) 1.2, Sodium Level 142, Potassium Level 3.5, Chloride Level 98, Carbon Dioxide Level 34H, Anion Gap 10, Blood Urea Nitrogen 22, Creatinine 0.7, Estimat Glomerular Filtration Rate , Glucose Level 116H, Calcium Level 8.7, Total Bilirubin 0.7, Aspartate Amino Transf (AST/SGOT) 17, Alanine Aminotransferase (ALT/SGPT) 15, Alkaline Phosphatase 138H, Total Protein 7.3, Albumin 2.9L, Globulin 4.4, Albumin/Globulin Ratio 0.6L Current Medications Medications (Trade) Dose Ordered Sig/Eber Route PRN Reason Start Time Stop Time Status Last Admin Dose Admin Albuterol Sulfate (Proventil) 2.5 mg Q6H PRN HHN Bronchospasm 10/31/16 21:45 11/05/16 21:44 Ascorbic Acid (Vitamin C) 500 mg TWICE A DAY GT 10/31/16 22:10 11/30/16 22:09 11/05/16 09:04 Aspirin (ASA) 81 mg DAILY NG 11/04/16 09:00 12/04/16 08:59 11/05/16 09:05 Furosemide (Lasix) 40 mg DAILY GT 11/04/16 09:00 12/04/16 08:59 11/05/16 09:04 Ipratropium [place] (Atrovent) 3 mcg Q6H PRN HHN Bronchospasm 10/31/16 21:45 11/05/16 21:44 Metoprolol Tartrate 12.5 mg 12.5 mg EVERY 12 HOURS GT 11/03/16 21:00 12/03/16 20:59 11/05/16 09:06 Multivitamins Therapeutic (Therapeutic Multivitamin) 1 ea DAILY ORAL 11/01/16 09:00 12/01/16 08:59 11/05/16 09:05 Nitrofurantoin (Nitrofurantoin) 50 mg Q6HR ORAL 11/04/16 16:00 11/11/16 15:59 11/05/16 05:59 Piperacillin Sod/ Tazobactam Sod/ Sodium Chloride (Zosyn/Sodium Chloride) 110 ml @ 27.5 mls/hr EVERY 8 HOURS IVPB 11/01/16 15:00 11/08/16 14:59 11/05/16 05:59 Potassium Chloride (KCl 10% 20 mEq oral solution) 10 meq DAILY NG 11/04/16 09:00 12/04/16 08:59 11/05/16 09:06 Sorbitol 30 ml 30 ml TWICE A DAY GT 11/01/16 09:00 12/01/16 08:59 11/05/16 09:05 Vancomycin HCl (Vanco rx to dose) 1 ea DAILY PRN MISC PER RX PROTOCOL 11/02/16 10:15 12/02/16 10:14 Vancomycin HCl/ Dextrose (Vancomycin/D5W) 275 ml @ 183.708 mls/hr Q24H IVPB 11/03/16 18:00 11/08/16 17:59 11/04/16 17:54 JUAN FRANCISCO SHEN Nov 05, 2016 10:40
[2016-11-05] MEDS ORDERED: Tubing IV Secondary IV ONE (10:57)
--- NOTE | 2016-11-08 09:07 | Diagnostic Imaging Report ---
Indication: Pleural effusion Technique: ULT CHEST Comparison: None. Findings: Ultrasound examination demonstrates no evidence of a right pleural effusion. Only minimal fluid is noted on the left. Patient could not be positioned for thoracentesis. Impression: Tiny left pleural effusion. Patient not able to tolerate positioning for thoracentesis.
--- NOTE | 2016-11-08 11:19 | Discharge Summary ---
Discharge Summary Hospital Course Date of Admission Oct 31, 2016 at 17:48 Date of Discharge Nov 05, 2016 at 11:20 Admitting Diagnosis chest pain HPI Edwardo Garcia is a 76 year old male who was admitted on Oct 31, 2016 at 17:48 for Chest Pain Hospital Course dc summary #[id number] Discharge Medications Continued Medications: Albuterol Sulfate* (Albuterol Sulfate Hhn*) 2.5 Mg/3 Ml Vial.neb 3 ML INH Q6H PRN for Bronchospasm Ascorbic Acid* (Vitamin C*) 500 Mg Tablet 500 MG JT TWICE A DAY for 30 Days, TAB FOR WOUND HEALING Digoxin* (Digoxin*) 0.125 Mg/2.5 Ml Solution 0.125 MG JT DAILY, ML HOLD IF APICAL PULSE IS LESS THAN 60 Esomeprazole Magnesium (Nexium) 20 Mg Suspdr.pkt 20 MG JT DAILY, PKT Ipratropium [place] 0.5MG/2.5ML (Ipratropium [place] 0.5MG/2.5ML) 0.2 Mg/1 Ml Solution 1 VIAL [id number] Q6H PRN for Bronchospasm Metoprolol Tartrate* (Metoprolol Tartrate*) 25 Mg Tablet 12.5 MG JT EVERY 12 HOURS, TAB HOLD FOR SBP <100 AND HR <80 (BBW) Multivitamin With Minerals (Multivitamins With Minerals*) 1 Each Tablet 1 TAB JT DAILY, TAB Sorbitol (Sorbitol) 30 Ml Solution 30 ML JT TWICE A DAY, ML HOLD FOR LOOSE BM. 70% SOLUTION Discontinued Medications: Chlorhexidine Gluconate (Peridex) 15 Ml Mouthwash 15 ML PO EVERY 12 HOURS, ML SWISH AND SPIT Discharge Condition Upon Discharge: stable Discharge Disposition Patient was discharged to SNF/Subacute Facility(03) Discharge Diagnoses: Discharge Instructions Discharge Instructions Special Instructions I have been assigned to complete a D/C Summary on this account. I was not involved in the patient management Nancy Song NP ([place]) Nov 08, 2016 11:19
--- NOTE | 2016-11-09 00:38 | Discharge Summary 2 SIG ---
DATE OF ADMISSION: 10/31/2016 DATE OF DISCHARGE: 11/05/2016 REASON FOR ADMISSION: 76-year-old male, chronically ventilator dependent, with tracheostomy, secondary to Guillain -Dayhoit syndrome, presented to emergency room with complaints of the chest pain. The patient was unable to verbalize his complaints, but was pointing to the chest in the prison. The patient was given nitroglycerin by the paramedics. Upon his arrival to the emergency department, the patient denied chest pain. No fever. No chills. No cough. Workup in the emergency room revealed no leukocytosis. Stable hemoglobin and hematocrit. Troponin negative. Elevated pro BNP. Creatinine stable. Chest x-ray revealed pulmonary congestion, cardiomegaly, and possible infiltrate. EKG showed atrial fibrillation with controlled rate. The patient was given aspirin, started on antibiotics, and transferred to [facility] for further management. ADMITTING DIAGNOSES: 1. Chest pain, rule out acute coronary syndrome. 2. Acute congestive heart failure exacerbation. 3. Acute on chronic respiratory failure. 4. Ventilator-dependent respiratory failure. 5. Tracheostomy. HOSPITAL STAY: The patient was admitted to [facility]. Cardiology, Pulmonology, and ID consult were requested. Sputum culture revealed strep group G and Serratia. Blood culture was negative. Urine culture showed E.coli. Antibiotic regimen optimized as per ID. Ventilator and tracheostomy care provided, settings were titrated as needed. Last chest x-ray revealed stable bilateral congestive changes. Ultrasound of the chest was done to check for need for paracentesis which revealed tiny left pleural effusion. No need for thoracentesis. An[employer] Seating Press Operator closely followed the patient. Initially, he recommended to monitor closely volume status and cardiorenal parameters. The patient was on digoxin and beta-blockers. Volume status was reassessed. The patient was started on maintenance diuresis. Congestive heart failure during the course of the stay became mostly compensated. An[employer] Seating [employer] Operator recommended maintenance diuresis. Pro BNP was trended. No anticoagulation started due to the increased risk to benefit ratio. According to clinical documentation spec, chest pain was likely angina episodes. No signs of recurrence and no signs of acute coronary insufficiency. An[employer] Seating [employer] Operator recommended maintaining current cardiovascular regimen with beta kenrick. Aspirin added. The patient was stable for discharge. DISCHARGE DIAGNOSES: 1. Acute on chronic respiratory failure. 2. Ventilator-dependent respiratory failure/tracheostomy. 3. Chest pain, likely angina episode. 4. Acute on chronic diastolic congestive heart failure exacerbation. 5. Sepsis. 6. Urinary tract infection/Escherichia coli. 7. Healthcare-associated pneumonia/Streptococcus group G, Serratia. 8. Guillain-Dayhoit syndrome with chronic respiratory failure. 9. Paroxysmal atrial fibrillation, rate controlled. 10. Dysphagia, with gastrostomy tube status DISCHARGE MEDICATIONS: See medication reconciliation list. DISCHARGE INSTRUCTIONS: The patient to follow up with the cd mixer helper and Internal Medicine doctor at the subacute facility. Bryant Zazueta M.D. I have been assigned to dictate discharge summary on this account and I was not involved in the patient's management. Nancy LoganCanton-Potsdam Hospitalarmando N.PJacob DR: KHADAR JOB#: [id number] CC: MARYBETH
== END 2016-11-05 11:20 | DRG 870 ==
LOC: EDBD 12:47 → EMR 13:50 → EDBEDREQ 17:40 → 2W 17:48
PROC: 5A1955Z Respiratory Ventilation, Greater than 96 Consecutive Hours (ICD-10-PCS; principal; 2016-10-31)
DX: A41.9 Sepsis, unspecified organism (principal); J96.20 Acute and chronic respiratory failure, unspecified whether with hypoxia or hypercapnia; J15.4 Pneumonia due to other streptococci; I50.33 Acute on chronic diastolic (congestive) heart failure; Z99.11 Dependence on respirator [ventilator] status; J15.6 Pneumonia due to other Gram-negative bacteria; G61.0 Guillain-Barre syndrome; I48.0 Paroxysmal atrial fibrillation; N39.0 Urinary tract infection, site not specified; Z43.1 Encounter for attention to gastrostomy; E44.1 Mild protein-calorie malnutrition; I20.9 Angina pectoris, unspecified; Z43.0 Encounter for attention to tracheostomy; Z99.81 Dependence on supplemental oxygen; B96.20 Unspecified Escherichia coli [E. coli] as the cause of diseases classified elsewhere; R13.10 Dysphagia, unspecified; Z88.2 Allergy status to sulfonamides; I10 Essential (primary) hypertension; Z87.891 Personal history of nicotine dependence; Z86.73 Personal history of transient ischemic attack (TIA), and cerebral infarction without residual deficits
CPT/HCPCS: 36415; 71010; 76604; 76942; 80053; 80202; 81003; 82550; 82553; 83605; 83880; 84484; 85025; 85610; 85730; 87040; 87070; 87081; 87086; 87181; 87205; 93005; 93970; 94002; 94003; 94640